=== PATIENT | female | born 2000 | race Caucasian/White ===

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

== ENCOUNTER 2020-01-25 00:06 | Outpatient (CLI) | payer MEDICAID, SELFPAY ==
[2020-01-25 12:41] LABS: Hemoglobin A1C 5.6 % (<5.7)
[2020-01-25 13:48] LABS: TSH 4.28 uIU/mL (0.52-4.13)
== END 2020-01-25 00:26 ==
PROVIDERS: PCP Pediatrics; Visit Provider Nurse Practitioner Pediatrics
DX: E03.1 Congenital hypothyroidism without goiter (principal)
CPT/HCPCS: 36415; 83036; 84443

== ENCOUNTER 2020-05-19 03:02 | Outpatient (CLI) | payer MEDICAID, SELFPAY ==
[2020-05-19 10:30] LABS: Hemoglobin A1C 5.7 % (<5.7)
[2020-05-19 11:00] LABS: TSH 2.98 uIU/mL (0.52-4.13)
== END 2020-05-19 03:22 ==
PROVIDERS: PCP Pediatrics; Visit Provider Nurse Practitioner Pediatrics
DX: E03.1 Congenital hypothyroidism without goiter (principal)
CPT/HCPCS: 36415; 83036; 84443

== ENCOUNTER 2020-05-27 10:22 | Emergency (ER) | payer MEDICAID, SELFPAY ==
[2020-05-27 10:26] VITALS: BP 143/88; PULSE 96; RESP 20; TEMP 36.9; O2SAT 100
--- NOTE | 2020-05-27 11:00 | DI.RAD_ITS ---
EXAM: XR ELBOW RT COMPLETE CLINICAL HISTORY: right elbow pain. TECHNIQUE: 2D digital imaging was performed. COMPARISON: No exams were available for comparison FINDINGS: BONES: No acute fracture is present. No bony destructive lesion is seen. JOINTS: The elbow is normally aligned. No joint effusion is seen. SOFT TISSUE: Normal. IMPRESSION: Unremarkable radiographs of the right elbow. DATA REPOSITORY: RADIATION DOSE DELIVERED:
--- NOTE | 2020-05-27 11:00 | ED.GENADUL_ITS ---
Discharge Plan Disposition Patient Disposition: HOME Condition: Good Discharge Details Clinical Impression: Concussion, Elbow pain, right Primary Care Provider: Devon Louie ED Provider: Britt Vail Home Meds and New Rx's Prescriptions: No Action tretinoin 0.025 % cream 1 applic TP QHS Qty: 20 RF: 1 levothyroxine 200 mcg tablet 200 mcg PO DAILY Qty: 60 RF: 0 fluoxetine 10 mg capsule 10 mg PO DAILY Qty: 60 RF: 1 levothyroxine 25 mcg Tablet 25 mcg PO DAILY RF: 0 Discharge Instructions Instructions: Concussion (ED) Additional Instructions: Take ibuprofen and Tylenol as needed for pain Wear your sling as needed to rest your elbow, I do not see evidence of fracture, repeat x-ray in 1 week if persistent pain Do not drive if you feel dizzy or have a headache, you may have concussion I recommend decreasing the amount of television and phone use and reading that this may help improve your symptoms, you may have concussion signs or symptoms for 7 to 14 days Return earlier should you have new or worsening complaints including vomiting, worsening hadache Stand Alone Forms: Work Release Medical Decision Making Suspect patient has concussion regarding mild headache and lightheadedness She is neurologically intact and my suspicion for intracranial pathology is low To diminish threshold to return to the of vomiting or worsening headache She is alert and oriented, nonfocal neurological exam and ambulatory steady gait No indication for head CT at this time X-ray of the right elbow does not show acute pathology per my interpretation, pending radiology review Discharged home stable condition with stable vital Sling applied for comfort, instructed to continue shoulder symptoms not become stressed Motrin Tylenol as needed for discomfort recommended Differential Diagnosis Differential Diagnosis: Concussion, subdural hematoma, fracture, strain Medical Records Medical records reviewed: Yes I reviewed the patient's medical records. HPI This 19-year-old female presents status post slip and fall. She hit her head when she fell. She not lose consciousness. The event occurred approximately half an hour prior to arrival. She complains of tenderness on the affected side of her head without dizziness, vomiting, or neck discomfort. She also complains of some right elbow pain. She denies strength or sensation changes. She was ambulatory after the event occurred. She was on her way to work. She describes the pain as an aching pain to the right side of her scalp. The elbow pain is exacerbated with movement and sharp. She otherwise healthy and not anticoagulated. She denies any chest pain, abdominal pain, shortness of breath, back pain. She denies any chance of . General Date/Time Provider Initiated Documentation: 05/27/20 10:35 . Related Data Home Medications Medication Instructions Recorded Confirmed levothyroxine 200 mcg tablet 200 mcg PO DAILY #60 tab-cap 01/22/19 05/27/20 tretinoin 0.025 % topical cream 1 applic TP QHS #20 gm 12/25/19 05/27/20 fluoxetine 10 mg capsule 10 mg PO DAILY #60 cap 03/10/20 05/27/20 levothyroxine 25 mcg PO DAILY 05/27/20 05/27/20 Previous Rx's Medication Instructions Recorded levothyroxine 200 mcg tablet 200 mcg PO DAILY #60 tab-cap 01/22/19 tretinoin 0.025 % topical cream 1 applic TP QHS #20 gm 12/25/19 fluoxetine 10 mg capsule 10 mg PO DAILY #60 cap 03/10/20 Allergies Allergy/AdvReac Type Severity Reaction Status Date / Time macadamia nut oil Allergy Verified 05/27/20 10:30 No Known Drug Allergies Allergy Verified 05/27/20 10:30 DAIRY Allergy Mild Diarrhea Uncoded 05/27/20 10:30 General Stated Complaint: HeadInjury COLEMAN: 3 Review of Systems Narrative: Review of systems negative x7 aside from where indicated in HPI [facility] Medical History (Updated 05/27/20 @ 11:10 by DEBBY Romo) 504 plan Chronic serous otitis media PE TUBES -2001 Congenital hypothyroidism Hearing aid worn amplifier at school Learning difficulty HAS IEP Respiratory syncytial virus bronchiolitis HOSP Surgical History Myringotomy w/ PE (pressure equalizing) tubes Family History Mother Dental decay loss of several teeth Sister BMI,pediatric >= 95% Brother Substance abuse THC Anxiety Social History (Updated 12/25/19 @ 13:59 by Adri Valdovinos LPN) Smoking/Tobacco Use Status: Never Second Hand Exposure: No Smoking risk assessment performed?: Yes Alcohol Intake: current Alcohol Intake frequency: holidays/special occasions only Drug use: Never Substance use type: does not use Household members: family Pets and animals: Yes Pets and animals: farm animals and other Details: GEESE Do you feel safe at home: Yes Do you feel safe in your relationship?: Yes Additional Social history: Works at [employer]. Exam Const General: cooperative, healthy appearing and comfortable Orientation: alert, awake and oriented x3 HENMT Head: normal to inspection, no palpable skull fracture, normocephalic and no abrasions Throat: uvula midline Eyes Pupils: PERRL EOM: EOM intact bilaterally Neck Neck: normal visual inspection and full ROM Other: No midline or paraspinal tenderness appreciated Chest Chest: normal inspection of the chest and normal palpation of entire chest wall Resp Effort & Inspection: normal respiratory effort Auscultation: clear to auscultation bilaterally Cardio Rate: regular rate GI Inspection: normal to inspection Rectal Exam - female: No tenderness Other: No CVA tenderness Back/Spine/Pelvis Other: No midline tenderness to lumbar or thoracic spine, no tenderness to hips bilaterally, Skin Other: Warm, dry, intact Neuro Other: GCS 15, alert and oriented x4, strength and sensation intact distally, ambulatory with steady gait Extrem Other: Tenderness to palpation to right medial elbow, no visible sign of trauma, range of motion intact, neurovascularly intact, no tenderness to palpation to wrist or shoulder bilaterally Course Vital Signs Vital signs: Vital Signs Temperature 36.9 C 05/27/20 10:26 Pulse 96 H 05/27/20 10:26 Respiratory Rate 20 05/27/20 10:26 Blood Pressure 143/88 H 05/27/20 10:26 Pulse Oximetry 100 05/27/20 10:26 Temperature 36.9 C 05/27/20 10:26 Temperature Source Skin 05/27/20 10:26 Pulse 96 H 05/27/20 10:26 Respiratory Rate 20 05/27/20 10:26 Respiratory Effort 05/27/20 10:34 Respiratory Depth Normal 05/27/20 10:34 Blood Pressure 143/88 H 05/27/20 10:26 Blood Pressure Position Sitting 05/27/20 10:26 Pulse Oximetry 100 05/27/20 10:26 Oxygen Delivery Method Room Air 05/27/20 10:26 Oxygen Flow Rate 0 05/27/20 10:26 Pain Level 6 05/27/20 10:26
== END 2020-05-27 11:50 | disposition home or self-care (01) ==
PROVIDERS: Emergency Provider Physician Assistant; PCP Pediatrics
DX: S06.0X0A Concussion without loss of consciousness, initial encounter (principal); M25.521 Pain in right elbow; W00.0XXA Fall on same level due to ice and snow, initial encounter
CPT/HCPCS: 99283; 73080

== ENCOUNTER 2020-08-10 15:01 | Emergency (ER) | payer MEDICAID, SELFPAY ==
[2020-08-10 15:30] VITALS: BP 125/70; PULSE 117; RESP 16; TEMP 37.1; O2SAT 97
--- NOTE | 2020-08-10 15:50 | ED.GENADUL_ITS ---
Discharge Plan Discharge Details Chief Complaint: Nausea/Vomit/Diar Primary Care Provider: Devon Louie ED Provider: Avery Mckeon Home Meds and New Rx's Prescriptions: No Action tretinoin 0.025 % cream 1 applic TP QHS Qty: 20 RF: 1 fluoxetine 20 mg capsule 20 mg PO DAILY Qty: 30 RF: 1 levothyroxine 200 mcg tablet 200 mcg PO DAILY Qty: 60 RF: 0 levothyroxine 25 mcg Tablet 25 mcg PO DAILY RF: 0 Medical Decision Making 20-year-old female with fairly abrupt onset of nausea, vomiting began after l unch and is associated with anxiety. She arrives here slightly tachycardic at triage, normalized to approximately 80-90 time of my exam, normal blood pressure no fever. Abdomen soft and nontender. She is quite anxious, may have a gastroenteritis, and does appear dehydrated. IV access established, patient given antiemetic, fluids, and is referred for laboratory testing with basic labs and urinalysis. White blood cell count is 9, hematocrit 34, platelets 394. Chemistries unremarkable. Serum hCG negative. Following fluids and antiemetic patient is improved. She will take liquids by mouth. Pulse corrected from 117-60. Lab Data Lab results reviewed: Yes I reviewed the patient's lab results. Labs: Laboratory Results - last 24 hr 08/10/20 08/10/20 08/10/20 16:40 16:44 16:44 WBC 9.71 RBC 4.72 Hgb 10.0 L Hct 34.0 L MCV 72.0 L MCH 21.2 L MCHC 29.4 L RDW 17.6 H Plt Count 394 MPV 9.4 Sodium 142 Potassium 3.8 Chloride 107 Carbon Dioxide 23.9 Anion Gap 11.1 H BUN 26 H Creatinine 0.9 Estimated GFR/1.73 m2 >= 60.00 Glucose 157 H Calcium 8.6 Serum HCG, Qual Negative HPI General Mode of arrival: ambulatory . Date/Time Provider Initiated Documentation: 08/10/20 15:02 . Limitations to Documentation: no limitations . Information obtained by: patient . History of Present Illness 20 year old F presents to the emergency department with the chief complaint of Anxiety started after lunch, Quality is described as dull and constant, and is localized to the abdomen. Patient started experiencing this minute(s) and it has been intermittent. No relieving factors improve symptom(s), No exacerbating factors reported . Patient notes loss of appetite and nausea/vomiting; denies fever/chills. Patient did receive the following treatments prior to arrival, none Related Data Home Medications Medication Instructions Recorded Confirmed tretinoin 0.025 % topical cream 1 applic TP QHS #20 gm 12/25/19 05/31/20 levothyroxine 25 mcg PO DAILY 05/27/20 08/02/20 levothyroxine 200 mcg tablet 200 mcg PO DAILY #60 tab-cap 06/25/20 08/02/20 fluoxetine 20 mg capsule 20 mg PO DAILY #30 cap 08/02/20 08/02/20 Previous Rx's Medication Instructions Recorded tretinoin 0.025 % topical cream 1 applic TP QHS #20 gm 12/25/19 levothyroxine 200 mcg tablet 200 mcg PO DAILY #60 tab-cap 06/25/20 fluoxetine 20 mg capsule 20 mg PO DAILY #30 cap 08/02/20 Allergies Allergy/AdvReac Type Severity Reaction Status Date / Time macadamia nut oil Allergy Verified 08/02/20 13:11 No Known Drug Allergies Allergy Verified 08/02/20 13:11 DAIRY Allergy Mild Diarrhea Uncoded 08/02/20 13:11 General Stated Complaint: Nausea/Vomit/Diar COLEMAN: 3 Review of Systems Narrative: 6 systems reviewed and otherwise neg [facility] Medical History 504 plan Chronic serous otitis media PE TUBES -2001 Congenital hypothyroidism Hearing aid worn amplifier at school Learning difficulty HAS IEP Respiratory syncytial virus bronchiolitis HOSP Surgical History Myringotomy w/ PE (pressure equalizing) tubes Family History Mother Dental decay loss of several teeth Sister BMI,pediatric >= 95% Brother Substance abuse THC Anxiety Social History Smoking/Tobacco Use Status: Never Second Hand Exposure: No Smoking risk assessment performed?: Yes Alcohol Intake: current Alcohol Intake frequency: holidays/special occasions only Drug use: Never Substance use type: does not use Household members: family Pets and animals: Yes Pets and animals: farm animals and other Details: GEESE Do you feel safe at home: Yes Do you feel safe in your relationship?: Yes Additional Social history: Works at [employer]. Exam Narrative Exam Narrative: GEN: awake, alert, oriented 3. Pleasant, well groomed, interactive. HEAD: Normocephalic, atraumatic ENT: Mucous membranes dry, oropharynx surrounded with vomitus, no intraoral obstruction, normal speech, External ear exam unremarkable EYES: PERRL, EOMI NECK: Full ROM, no BRENNEN, no menigismus CHEST/RESP: Nontender, clear to auscultation bilateral, no wheeze/rhonchi/rales CARDIOVASCULAR: RRR, no murmur, rub skyler. 2+ Rad pulse bilateral ABDOMEN: Soft, nontender, no mass. +Bowel sounds EXT: Full ROM, no edema, no rash Neuro: Grossly normal neurologic exam, conversant, interactive. Psych: Speech fluent, thoughts congruent, affect normal Course Vital Signs Vital signs: Vital Signs Temperature 37.1 C 08/10/20 15:30 Pulse 117 H 08/10/20 15:30 Respiratory Rate 16 08/10/20 15:30 Blood Pressure 125/70 08/10/20 15:30 Pulse Oximetry 97 08/10/20 15:30 Temperature 37.1 C 08/10/20 15:30 Temperature Source Temporal Artery Scan 08/10/20 15:30 Pulse 117 H 08/10/20 15:30 Respiratory Rate 16 08/10/20 15:30 Respiratory Effort 08/10/20 15:35 Blood Pressure 125/70 08/10/20 15:30 Blood Pressure Position Sitting 08/10/20 15:30 Pulse Oximetry 97 08/10/20 15:30 Oxygen Delivery Method Room Air 08/10/20 15:30 Oxygen Flow Rate 0 08/10/20 15:30 Pain Level 0 08/10/20 15:30
[2020-08-10 15:57] VITALS: BP 129/72; PULSE 60; RESP 24; O2SAT 100
[2020-08-10] MEDS: Normal Saline 1,000 ML 1000 ML IV ×2 (16:22→17:27)
[2020-08-10] MEDS: Ondansetron 4 MG/2 ML VIAL IVP (16:22)
[2020-08-10 16:55] LABS: MCH 21.2 pg (27.0-33.0); MCHC 29.4 % (32.0-36.0); MPV 9.4 fL (8.0-11.0); Platelet Count 394 10^3/uL (130-400); RBC 4.72 10^6/uL (3.93-5.22); RDW 17.6 % (11.7-14.6); RDW-SD 45.7 fL; WBC 9.71 10^3/uL (4.4-10.8)
[2020-08-10 17:06] LABS: Anion Gap 11.1 mmol/L (3-11); BUN 26 mg/dL (7-18); CO2 23.9 mmol/L (21.0-32.0); CREATININE 0.9 mg/dL (0.55-1.02); Calcium 8.6 mg/dL (8.5-10.1); Chloride 107 mmol/L (98-107); Glucose 157 mg/dL (74-106); Potassium 3.8 mmol/L (3.5-5.1); Sodium 142 mmol/L (136-145)
[2020-08-10 17:39] LABS: HCG Qual (Serum) Negative
--- NOTE | 2020-08-10 18:00 | NUR.NOTE ---
Nursing Note: Bina,mom,[phone]
[2020-08-10 18:35] VITALS: BP 112/69; PULSE 89; RESP 15; TEMP 37.1; O2SAT 99
[2020-08-10 20:21] LABS: Bilirubin Negative (Negative); Blood Large (Negative); Clarity Clear (Clear); Glucose Negative (Negative); Ketones Negative (Negative); Leukocyte Esterase Negative (Negative); Nitrite Negative (Negative); Specific Gravity 1.025 (1.005-1.025); Urobilinogen 0.2 EU/dL (Up TO 0.2)
[2020-08-10 20:27] LABS: Bacteria Negative HPF (Negative); C & S Indicated? No/Sq. Contamination; Casts Negative LPF (Negative); Crystals Few Amorphous HPF (Negative); Epithelial Cells Many HPF (Negative); Mucus Negative (Negative); WBC 0-2 HPF (0-5)
[2020-08-10] MEDS: Ondansetron O.D.T. 4 MG TABEF, 3 TABS/BTL 12 MG (20:33)
== END 2020-08-10 20:49 | disposition home or self-care (01) ==
PROVIDERS: Emergency Provider Emergency Medicine; PCP Pediatrics
DX: R11.2 Nausea with vomiting, unspecified (principal); F41.9 Anxiety disorder, unspecified; E86.0 Dehydration
CPT/HCPCS: 36415; 80048; 81025; 85027; 96361; 96365; 96366; 96375; 99284; 81003; 81015; 84703; J2405

== ENCOUNTER 2020-09-11 21:06 | Inpatient (IN) | payer MEDICAID, SELFPAY ==
[2020-09-11 21:10] VITALS: BP 152/96; PULSE 87; RESP 18; TEMP 37.4; O2SAT 98
--- NOTE | 2020-09-11 21:23 | W.ED.GENAD ---
Discharge Plan Disposition Patient Disposition: [facility] INPATIENT Condition: Stable Discharge Details Clinical Impression: Suicidal ideation, Major depression Admit Date/Time: 09/12/20 14:43 Admit Provider: Adelso Chan Attending Provider: Adelso Chan Primary Care Provider: Devon Louie ED Provider: Erin Vee Discharge Data Discharge Date/Time-TO BE ENTERED AT DEPARTURE: 09/12/20 15:51 Medical Decision Making <Bean Samuels DO - Last Filed: 09/11/20 23:06> 20-year-old female with past medical history of depression hypothyroidism presents today for evaluation of depression and suicidality. Patient states that for the last few years she has struggled with depression and suicidality however over the last few days she has had notable worsening of this, she states that she feels that she is in a dark tunnel and cannot get out and that the only solution is test. She states she would end her life by taking pills or cutting her wrists, she says that she has cut her wrist once in the distant past but she has not tried to overdose on pills before. She has not taken any extra pills, and denies any IV or illicit drug use currently. She denies any homicidality. She denies any auditory or visual hallucinations. She does have a counselor who did recommend that she come in. No other complaints at this time. No other modifying factors. Exam is unremarkable, no evidence of self-harm at this time. We will get the patient in blue scrubs, do a formal work-up to rule out any physiologic cause of her symptoms, consult mental health, monitor closely and reassess. The patient does want to be here voluntarily at this time. 11:06 PM Laboratory work-up is returned unremarkable, patient medically cleared. Mental health has come and assessed the patient and they agree on the need for inpatient admission, and the patient agrees with this as well. We will keep the patient here in the emergency department for the time being, and monitor closely. I did contact the patient's mother at the patient's request, Bina, and discussed the case with her. She agrees with the plan. <Erin Vee DO - Last Filed: 09/15/20 09:31> 0730 -- please see Dr. Samuels's note for initial presentation, exam and plan. Case endorsed to monitor patient today with potential plan for transfer to the floor for admission. Patient was held in the ED due to limited availability with other psych patients on the floor. 1400 -- Care huddle with team -- plan is for patient to go to the floor soon. 1430 -- Case discussed with hospitalist who accepts patient for admission to the floor. Care management noted that there may be availability at [facility]. [facility] is requesting hemoglobin A1c, lipid panel and EKG. Medical Records Medical records reviewed: Yes I reviewed the patient's medical records. Lab Data Lab results reviewed: Yes I reviewed the patient's lab results. Labs: Laboratory Tests Range/Units 09/11/20 09/11/20 09/11/20 00:05 21:25 21:25 WBC (4.4-10.8) 10^3/uL RBC (3.93-5.22) 10^6/uL Hgb (11.2-15.7) g/dL Hct (36.0-46.0) % MCV (80-95) fL MCH (27.0-33.0) pg MCHC (32.0-36.0) % RDW (11.7-14.6) % Plt Count (130-400) 10^3/uL MPV (8.0-11.0) fL Immature Gran % Neutrophils % Lymphocytes % Monocytes % Eosinophils % Basophils % Nucleated RBC % % Absolute Neutrophils (1.2-6.7) 10^3/uL Absolute Lymphocytes (1.2-3.4) 10^3/uL Absolute Monocytes (0.1-0.8) 10^3/uL Absolute Eosinophils (0.0-0.7) 10^3/uL Absolute Basophils (0.0-0.2) 10^3/uL RBC Morphology Hypochromasia Microcytosis Sodium (136-145) mmol/L 141 Potassium (3.5-5.1) mmol/L 4.1 Chloride (98-107) mmol/L 106 Carbon Dioxide (21.0-32.0) mmol/L 25.1 Anion Gap (3-11) mmol/L 9.9 BUN (7-18) mg/dL 22 H Creatinine (0.55-1.02) mg/dL 0.8 Estimated GFR/1.73 m2 (mL/min/1.73m2) >= 60.00 Glucose (74-106) mg/dL 99 Calcium (8.5-10.1) mg/dL 8.6 Total Bilirubin (0.2-1.0) mg/dL 0.2 AST (15-37) U/L 19 ALT (14-59) U/L 27 Alkaline Phosphatase (46-116) U/L 77 Total Protein (6.4-8.2) g/dL 7.8 Albumin (3.4-5.0) g/dL 3.7 Triglycerides (<150) mg/dL Total Cholesterol (<200) mg/dL LDL Cholesterol, Calc (<100) mg/dL HDL Cholesterol (40-60) mg/dL TSH (0.36-3.74) uIU/mL 2.87 Salicylates (<2.8) mg/dL 4.9 Urine Opiates Screen (Negative) Urine Methadone Screen (Negative) Acetaminophen (10-30) ug/mL < 2 Ur Barbiturates Screen (Negative) Ur Tricyclics Screen (Negative) Ur Amphetamines Screen (Negative) U Benzodiazepines Scrn (Negative) Urine Cocaine Screen (Negative) Ur THC Screen (Negative) Ethyl Alcohol (<3) mg/dL 3.2 COVID-19 Source Nasal/nares SARS-CoV-2 (PCR) (Negative) Negative Range/Units 09/11/20 09/11/20 09/11/20 21:25 21:25 21:35 WBC (4.4-10.8) 10^3/uL 5.99 RBC (3.93-5.22) 10^6/uL 4.81 Hgb (11.2-15.7) g/dL 10.3 L Hct (36.0-46.0) % 33.6 L MCV (80-95) fL 69.9 L MCH (27.0-33.0) pg 21.4 L MCHC (32.0-36.0) % 30.7 L RDW (11.7-14.6) % 17.7 H Plt Count (130-400) 10^3/uL 383 MPV (8.0-11.0) fL 8.9 Immature Gran % 0.2 Neutrophils % 49.6 Lymphocytes % 37.7 Monocytes % 8.0 Eosinophils % 3.8 Basophils % 0.7 Nucleated RBC % % 0 Absolute Neutrophils (1.2-6.7) 10^3/uL 2.97 Absolute Lymphocytes (1.2-3.4) 10^3/uL 2.26 Absolute Monocytes (0.1-0.8) 10^3/uL 0.48 Absolute Eosinophils (0.0-0.7) 10^3/uL 0.23 Absolute Basophils (0.0-0.2) 10^3/uL 0.04 RBC Morphology See below Hypochromasia 2+ Microcytosis 2+ Sodium (136-145) mmol/L Potassium (3.5-5.1) mmol/L Chloride (98-107) mmol/L Carbon Dioxide (21.0-32.0) mmol/L Anion Gap (3-11) mmol/L BUN (7-18) mg/dL Creatinine (0.55-1.02) mg/dL Estimated GFR/1.73 m2 (mL/min/1.73m2) Glucose (74-106) mg/dL Calcium (8.5-10.1) mg/dL Total Bilirubin (0.2-1.0) mg/dL AST (15-37) U/L ALT (14-59) U/L Alkaline Phosphatase (46-116) U/L Total Protein (6.4-8.2) g/dL Albumin (3.4-5.0) g/dL Triglycerides (<150) mg/dL 83 Total Cholesterol (<200) mg/dL 208 H LDL Cholesterol, Calc (<100) mg/dL 128 H HDL Cholesterol (40-60) mg/dL 64 TSH (0.36-3.74) uIU/mL Salicylates (<2.8) mg/dL Urine Opiates Screen (Negative) Negative Urine Methadone Screen (Negative) Negative Acetaminophen (10-30) ug/mL Ur Barbiturates Screen (Negative) Negative Ur Tricyclics Screen (Negative) Negative Ur Amphetamines Screen (Negative) Negative U Benzodiazepines Scrn (Negative) Negative Urine Cocaine Screen (Negative) Negative Ur THC Screen (Negative) Negative Ethyl Alcohol (<3) mg/dL COVID-19 Source SARS-CoV-2 (PCR) (Negative) ECG Data Attestation: I personally reviewed and interpreted this ECG (s) as follows: Interpretation: Rate of 77, sinus, no acute ST elevation or depression. DC 145. QTc 421 HPI <Bean R Arvind, DO - Last Filed: 09/11/20 23:06> General Date/Time Provider Initiated Documentation: 09/11/20 21:08. HPI Narrative: 20-year-old female with past medical history of depression hypothyroidism presents today for evaluation of depression and suicidality. Patient states that for the last few years she has struggled with depression and suicidality however over the last few days she has had notable worsening of this, she states that she feels that she is in a dark tunnel and cannot get out and that the only solution is test. She states she would end her life by taking pills or cutting her wrists, she says that she has cut her wrist once in the distant past but she has not tried to overdose on pills before. She has not taken any extra pills, and denies any IV or illicit drug use currently. She denies any homicidality. She denies any auditory or visual hallucinations. She does have a counselor who did recommend that she come in. No other complaints at this time. No other modifying factors. Related Data Home Medications Medication Instructions Recorded Confirmed fluoxetine 40 mg capsule 40 mg PO DAILY #30 cap 08/30/20 09/11/20 hydroxyzine pamoate 25 mg capsule 25 mg PO TID PRN #14 cap 08/30/20 09/11/20 levothyroxine 112 mcg capsule 224 mcg PO DAILY #60 cap 08/30/20 09/11/20 ondansetron 8 mg disintegrating 8 mg PO Q12H #7 tab 08/30/20 09/11/20 tablet Previous Rx's Medication Instructions Recorded fluoxetine 40 mg capsule 40 mg PO DAILY #30 cap 08/30/20 hydroxyzine pamoate 25 mg capsule 25 mg PO TID PRN #14 cap 08/30/20 levothyroxine 112 mcg capsule 224 mcg PO DAILY #60 cap 08/30/20 ondansetron 8 mg disintegrating 8 mg PO Q12H #7 tab 08/30/20 tablet Allergies Allergy/AdvReac Type Severity Reaction Status Date / Time macadamia nut oil Allergy Verified 09/11/20 23:08 No Known Drug Allergies Allergy Verified 09/11/20 23:08 DAIRY Allergy Mild Diarrhea Uncoded 09/11/20 23:08 General COLEMAN: 3 Review of Systems <DO Lori Villegas Last Filed: 09/11/20 23:06> All systems reviewed & are unremarkable except as noted in HPI and below PFSH <Bean Childs DO Arvind - Last Filed: 09/11/20 23:06> Medical History 504 plan Chronic serous otitis media PE TUBES -2001 Congenital hypothyroidism Hearing aid worn amplifier at school Learning difficulty HAS IEP Respiratory syncytial virus bronchiolitis HOSP Surgical History Myringotomy w/ PE (pressure equalizing) tubes Family History Mother Dental decay loss of several teeth Sister BMI,pediatric >= 95% Brother Substance abuse THC Anxiety Social History Smoking/Tobacco Use Status: Never Second Hand Exposure: No Smoking risk assessment performed?: Yes Alcohol Intake: current Alcohol Intake frequency: holidays/special occasions only Drug use: Occasionally Substance use type: other Details: States she uses edibles a couple x a month. States she does not have ready access to them. Household members: family Pets and animals: Yes Pets and animals: farm animals and other Details: GEESE Do you feel safe at home: Yes Do you feel safe in your relationship?: Yes Additional Social history: Works at [employer]. Exam <Bean Childs DO Arvind - Last Filed: 09/11/20 23:06> Narrative Exam Narrative: 1.Const: Well-nourished, Well-developed, appearing stated age 2.Eyes: PERRL, no conjunctival injection, and symmetrical lids. 3.ENT: Atraumatic external nose and ears. Moist MM. Neck: Symmetric, trachea midline, No thyromegaly. 4.CVS: +S1/S2, No murmurs or gallops. Peripheral pulses 2+ and equal in all extremities. Brisk capillary refill in all extremities. 5.RESP: Unlabored respiratory effort. Clear to auscultation bilaterally. No wheezes rales or rhonchi 6.GI: Soft, Nontender/Nondistended, No hepatosplenomegaly. No guarding or rebound. 7.MSK: Normocephalic/Atraumatic, Extremities w/o deformity or ttp No cyanosis or clubbing, Normal movement of all extremities 8.Skin: Warm, Dry. No rashes or lesions. No evidence of lacerations or self-inflicted wounds. 9.Neuro: weigher and charger II-XII grossly intact. Sensation grossly intact, no focal neurologic deficits. 10.Psych: (AAO) x3. Appropriate mood and affect Sign Out <Bean Samuels DO - Last Filed: 09/11/20 23:06> Sign Out Data: Sign Out Comment: Suicidal ideation with plan, here voluntarily, wants help. Patient stable for admission however due to current patient's up in the mental health srinivasan it might not be best for the patient to be admitted at this time until one of them is potentially discharge. Last updated by Bean Samuels DO at 09/12/20 07:42
[2020-09-11 21:41] LABS: Abs Immature Grans 0.01 10^3/uL (0.0-0.06); Absolute Basophil Count 0.04 10^3/uL (0.0-0.2); Absolute Eosinophil Count 0.23 10^3/uL (0.0-0.7); Absolute Lymphocyte Count 2.26 10^3/uL (1.2-3.4); Absolute Monocyte Count 0.48 10^3/uL (0.1-0.8); Absolute Neutrophil Count 2.97 10^3/uL (1.2-6.7); Basophils % 0.7; Eosinophils % 3.8; HCT 33.6 % (36.0-46.0); HGB 10.3 g/dL (11.2-15.7); Immature Grans % 0.2; Lymphocytes % 37.7; MCH 21.4 pg (27.0-33.0); MCHC 30.7 % (32.0-36.0); MCV 69.9 fL (80-95); MPV 8.9 fL (8.0-11.0); Neutrophils % 49.6; Nucleated RBC 0 %; Platelet Count 383 10^3/uL (130-400); RBC 4.81 10^6/uL (3.93-5.22); RDW 17.7 % (11.7-14.6); RDW-SD 43.6 fL; WBC 5.99 10^3/uL (4.4-10.8)
[2020-09-11 21:52] LABS: *AMPHETAMINES SCREEN URINE Negative (Negative); *BARBITURATES SCREEN URINE Negative (Negative); *BENZODIAZEPINES SCREEN URINE Negative (Negative); Cannabinoids THC Negative (Negative); Cocaine Screen,Urine Negative (Negative); METHADONE URINE SCREEN Negative (Negative); OPIATES URINE SCREEN Negative (Negative)
[2020-09-11 21:54] LABS: Tricyclic Antidepressants Negative (Negative)
[2020-09-11 22:02] LABS: Diff Comment Diff Reviewed; Hypochromasia 2+; Microcytosis 2+
[2020-09-11 22:04] LABS: ALT 27 U/L (14-59); AST 19 U/L (15-37); Albumin 3.7 g/dL (3.4-5.0); Alkaline Phosphatase 77 U/L (46-116); Anion Gap 9.9 mmol/L (3-11); BUN 22 mg/dL (7-18); Bilirubin, Total 0.2 mg/dL (0.2-1.0); CO2 25.1 mmol/L (21.0-32.0); CREATININE 0.8 mg/dL (0.55-1.02); Calcium 8.6 mg/dL (8.5-10.1); Chloride 106 mmol/L (98-107); ETHANOL BLOOD 3.2 mg/dL (<3); Glucose 99 mg/dL (74-106); Potassium 4.1 mmol/L (3.5-5.1); Sodium 141 mmol/L (136-145); TSH 2.87 uIU/mL (0.36-3.74); Total Protein 7.8 g/dL (6.4-8.2)
[2020-09-11 22:16] LABS: Salicylate 4.9 mg/dL (<2.8)
[2020-09-11 22:19] LABS: Acetaminophen < 2 ug/mL (10-30)
--- NOTE | 2020-09-11 22:39 | CMSP_ITS ---
- If Service Date Differs Date of service: 09/11/20 Time of Service: 22:39 Care Management Safety Plan Status: Voluntary Liliya is a 20 year old female with a history of depression who presented to the ED tonight with depression and thoughts of suicide. She reports that she would end her life by an overdose of medication or cutting her wrists. She has a therapist in the community who provides support. She is medically cleared, and is being assessed by [facility] to determine if she meets criteria to be held for inpatient psychiatric stabilization. VOLUNTARY FOR INPATIENT PSYCHIATRIC STABILIZATION. Patient is appropriate in all interactions since arriving at [facility]; Pt has demonstrated appropriate coping and communication skills, has articulated his or her needs and concerns and is fully engaged during staff interactions. Safety plan has been established with patient, and care team, to adhere to patient goals, identify restrictions based on behavioral status, address nutrition, and determine allowed personal belongings, tools for hygiene and personal care. Determine level of activity including ambulation, level of supervision, visitors, and determine privileges based on behaviors and level of engagement by pt. SAFETY PLAN: 1. Will remain on suicide precautions. In Paper Clothes 2. Will remain in room under direct supervision of one-on-one staff at all times provided by [employer]; KUSH, SALES REPRESENTATIVE ADDING MACHINES radio performer. 3. May have paper cups, plates, finger foods as well as a cardboard spoon with which to eat meals. 4. Follow [facility] Management of the Admitted Behavioral Health Patient policy. 5. Comfort bath system only. 6. Personal belongings at RN discretion. 7. Visitors-No visitors at this time 8. Activities: soft cart items, music tablet, TV; at RN discretion. 9. Bathroom privileges, escorted by [employer] while in ED. 10. Phone: may have own phone while in the ED, at discretion of staff. 11. Due to VOLUNTARY status, if patient wishes to leave [facility], staff will contact [facility] Crisis Screener ([phone]) and On-Call Combat Systems Operator ([phone]) as soon as possible. In the event of elopement, notify [facility] Police ([phone]). Patient is currently voluntarily at [facility] and seeking inpatient admission when a bed becomes available. [facility] Frontline Data Capture Clerk will continue seeking placement. Please contact the Physician Relations Specialist Combat Systems Operator ([phone]) and [facility] Data Capture Clerk ([phone]) for any needed changes in the Safety Plan. Safety plan has been provided to interdepartmental care team.
--- NOTE | 2020-09-11 23:22 | PDOC.MHCN_ITS ---
Date of service: 09/11/20 Time of Service: 22:22 Mental Health Crisis Note Presenting Issue How did you arrive at the ED and why did you come: Client arrived at the ED by her mother. Client reports that she was having SI and was afraid she was going to act on it, so she told her mother and was brought to the ED. Precipitating Factors Client reports SI with a plan to either od on prescription medication or slit her wrists. Disposition BEHAVIOR: Client is polite and receptive when speaking with this video games storywriter. EYE CONTACT: Client makes eye contact throughout the entire assessment. MOOD: Clients mood is depressed. AFFECT: Clients affect is flat. APPETITE: unknown SLEEP(trouble falling/staying asleep: Client reports trouble with sleep. Plan Client would like voluntary hospitalization. She fears that if she were to go home, she will act on her SI. She does not feel safe. This video games storywriter consulted with Dr. Samuels and client will be admitted to [facility] awaiting placement for a hospital bed. This video games storywriter called all hospitals and no availability tonight. All paperwork will be faxed. Signature Clinician's Name/Title: Annalise Schilling [facility] Emergency Clinician
[2020-09-12 00:16] LABS: Source Nasal/Nares
[2020-09-12] MEDS: diphenhydrAMINE 25 MG CAP PO (00:58)
[2020-09-12] MEDS: Melatonin 3 MG TAB 6 MG PO ×2 (01:16→20:35)
[2020-09-12] MEDS: Levothyroxine 112 MCG TAB 224 MCG PO (08:27)
[2020-09-12] MEDS: FLUoxetine 10 MG TAB PO (08:27)
[2020-09-12 10:27] VITALS: BP 120/71; PULSE 91; TEMP 37; O2SAT 98
[2020-09-12 10:49] LABS: COVID-19 PCR Negative (Negative)
--- NOTE | 2020-09-12 13:53 | PDOC.MHCN ---
Date of service: 09/12/20 Time of Service: 11:30 Mental Health Crisis Note Presenting Issue How did you arrive at the ED and why did you come: Client arrived to ER via private transport due to SI with intent and a plan. Precipitating Factors Client denied SI/HI at this time. However, client stated she does not feel safe to go home and would still like to seek treatment Disposition BEHAVIOR: Client was cooperative and cordial EYE CONTACT: Client maintained good eye contact during this assessment MOOD: Client presented with anxious but hopeful mood. AFFECT: Client presented with restricted affect APPETITE: Client reported she some times experiences decreased appetite SLEEP(trouble falling/staying asleep: Client reported difficulty falling asleep. Client stated that she is able to stay asleep. Plan Client is still agreeable to in-patient treatment. Client is currently on voluntary status and will remain at [facility] till she is placed. Client will need to be reassessed by [facility] if she decided to discharge before placement so a safety plan could be made. Signature Clinician's Name/Title: Buffy Kolb / Emergency Services Clinician
--- NOTE | 2020-09-12 13:56 | PDOC.CMSAFED ---
- If Service Date Differs Date of service: 09/12/20 Time of Service: 13:56 Care Management Safety Plan Status: Voluntary VOLUNTARY FOR INPATIENT PSYCHIATRIC STABILIZATION. Patient is appropriate in all interactions since arriving at [facility]; Pt has demonstrated appropriate coping and communication skills, has articulated his or her needs and concerns and is fully engaged during staff interactions. A huddle is held with Dr. Vee, ED provider, Lilian, nursing operations and maintenance supervisor, Fatmata, charge nurse, Falguni RN, and GIRMA Mcnally. Safety plan has been established with patient, and care team, to adhere to patient goals, identify restrictions based on behavioral status, address nutrition, and determine allowed personal belongings, tools for hygiene and personal care. Determine level of activity including ambulation, level of supervision, visitors, and determine privileges based on behaviors and level of engagement by pt. SAFETY PLAN: 1. Will remain on suicide precautions. In Paper Clothes 2. Will remain in room under direct supervision of one-on-one staff at all times provided by [employer], KUSH, SHOWCASE TRIMMER outboard motorboat operator. 3. May have paper cups, plates, finger foods as well as a cardboard spoon with which to eat meals. 4. Follow [facility] Management of the Admitted Behavioral Health Patient policy. 5. Personal care: Shower permitted with supervision and at RN discretion. 6. Personal belongings at RN discretion. 7. Visitors-No visitors at this time 8. Activities: soft cart items, music tablet, TV when available, and other activities at RN discretion. 9. Bathroom privileges, escorted by [employer] while in ED. If moved to Med/Surg, may use the bathroom available in room without supervision. 10. Phone: may use hospital phone for incoming and outgoing phone calls at discretion of staff. 11. Due to VOLUNTARY status, if patient wishes to leave [facility], staff will contact [facility] Crisis Screener ([phone]) and On-Call Precision Dancer ([phone]) as soon as possible. In the event of elopement, notify [place] [employer] Police ([phone]). Patient is currently voluntarily at [facility] and seeking inpatient admission when a bed becomes available. [facility] Frontline Consular Officer will continue seeking placement. Please contact the Privacy Compliance Manager Precision Dancer ([phone]) and [facility] Consular Officer ([phone]) for any needed changes in the Safety Plan. Safety plan has been provided to interdepartmental care team.
--- NOTE | 2020-09-12 14:49 | W.PM.HP.N ---
Date of service: 09/12/20 Time of Service: 14:49 Assessment and Plan Assessment and plan (1) Congenital hypothyroidism: Status: Acute (2) Depression: Status: Chronic (3) Suicidal ideations: Status: Acute History of Present Illness History of Present Illness Chief Complaint: Suicidal Ideation Narrative: This is a 20 yo female with a PMH of depression, . She presented to the ED for evaluation after having thoughts of suicide and feeling depressed. She presented voluntarily. States she thought about slitting wrists or taking pills. She endorsed taking a large amt of pills in the distant past. She denied taking any extra prescribed pills currently. She stated to the ED physician that her depression has worsened over the last several days and that she feels she is in a dark tunnel and can't get out. No hallucinations, confusion. Her counselor encouraged her to present for evaluation. Review of Systems All systems reviewed & are unremarkable except as noted in HPI and below PFSH Medical History (Updated 09/12/20 @ 14:55 by Adelso Chan MD) 504 plan Chronic serous otitis media PE TUBES -2001 Congenital hypothyroidism Hearing aid worn amplifier at school Learning difficulty HAS IEP Respiratory syncytial virus bronchiolitis HOSP Surgical History Myringotomy w/ PE (pressure equalizing) tubes Family History Mother Dental decay loss of several teeth Sister BMI,pediatric >= 95% Brother Substance abuse THC Anxiety Social History Smoking/Tobacco Use Status: Never Second Hand Exposure: No Smoking risk assessment performed?: Yes Alcohol Intake: current Alcohol Intake frequency: holidays/special occasions only Drug use: Occasionally Substance use type: other Details: States she uses edibles a couple x a month. States she does not have ready access to them. Household members: family Pets and animals: Yes Pets and animals: farm animals and other Details: GEESE Do you feel safe at home: Yes Do you feel safe in your relationship?: Yes Additional Social history: Works at [employer]. Meds Allergies and Home Medications Allergies Allergy/AdvReac Type Severity Reaction Status Date / Time macadamia nut oil Allergy Verified 05/23/21 23:08 No Known Drug Allergies Allergy Verified 09/11/20 23:08 DAIRY Allergy Mild Diarrhea Uncoded 09/11/20 23:08 Home Medications Medication Instructions Recorded Confirmed Type fluoxetine 40 mg capsule 40 mg PO DAILY #30 cap 08/30/20 09/11/20 Rx hydroxyzine pamoate 25 mg capsule 25 mg PO TID PRN #14 cap 08/30/20 09/11/20 Rx levothyroxine 112 mcg capsule 224 mcg PO DAILY #60 cap 08/30/20 09/11/20 Rx ondansetron 8 mg disintegrating 8 mg PO Q12H #7 tab 08/30/20 09/11/20 Rx tablet Results Labs Result diagrams: 09/11/20 21:25 09/11/20 21:25 Labs: Laboratory Results - last 24 hr 09/11/20 09/11/20 09/11/20 00:05 21:25 21:25 WBC RBC Hgb Hct MCV MCH MCHC RDW Plt Count MPV Immature Gran % Neutrophils % Lymphocytes % Monocytes % Eosinophils % Basophils % Nucleated RBC % Absolute Neutrophils Absolute Lymphocytes Absolute Monocytes Absolute Eosinophils Absolute Basophils RBC Morphology Hypochromasia Microcytosis Sodium 141 Potassium 4.1 Chloride 106 Carbon Dioxide 25.1 Anion Gap 9.9 BUN 22 H Creatinine 0.8 Estimated GFR/1.73 m2 >= 60.00 Glucose 99 Calcium 8.6 Total Bilirubin 0.2 AST 19 ALT 27 Alkaline Phosphatase 77 Total Protein 7.8 Albumin 3.7 TSH 2.87 Salicylates 4.9 Urine Opiates Screen Urine Methadone Screen Acetaminophen < 2 Ur Barbiturates Screen Ur Tricyclics Screen Ur Amphetamines Screen U Benzodiazepines Scrn Urine Cocaine Screen Ur THC Screen Ethyl Alcohol 3.2 COVID-19 Source Nasal/nares SARS-CoV-2 (PCR) Negative 09/11/20 09/11/20 21:25 21:25 WBC 5.99 RBC 4.81 Hgb 10.3 L Hct 33.6 L MCV 69.9 L MCH 21.4 L MCHC 30.7 L RDW 17.7 H Plt Count 383 MPV 8.9 Immature Gran % 0.2 Neutrophils % 49.6 Lymphocytes % 37.7 Monocytes % 8.0 Eosinophils % 3.8 Basophils % 0.7 Nucleated RBC % 0 Absolute Neutrophils 2.97 Absolute Lymphocytes 2.26 Absolute Monocytes 0.48 Absolute Eosinophils 0.23 Absolute Basophils 0.04 RBC Morphology See below Hypochromasia 2+ Microcytosis 2+ Sodium Potassium Chloride Carbon Dioxide Anion Gap BUN Creatinine Estimated GFR/1.73 m2 Glucose Calcium Total Bilirubin AST ALT Alkaline Phosphatase Total Protein Albumin TSH Salicylates Urine Opiates Screen Negative Urine Methadone Screen Negative Acetaminophen Ur Barbiturates Screen Negative Ur Tricyclics Screen Negative Ur Amphetamines Screen Negative U Benzodiazepines Scrn Negative Urine Cocaine Screen Negative Ur THC Screen Negative Ethyl Alcohol COVID-19 Source SARS-CoV-2 (PCR) Last Vital Signs Temp 37 C 09/12/20 10:27 Pulse 91 H 09/12/20 10:27 Resp 18 09/11/20 21:10 BP 120/71 09/12/20 10:27 Pulse Ox 98 09/12/20 10:27 COVID-19 Screening Have you, or household traveled for leisure in last 14 days?: No Had IN PERSON contact w/suspected or confirmed C-19 person: No
--- NOTE | 2020-09-12 15:00 | RT.EKG_ITS ---
APPROVED REPORT Exam: Resting ECG Reason for Exam: screening, depression Patient Location: E HR:77 bpm ECG Measurements Heart Rate 77 AXIS FL 145 P 37 QRSd 97 QRS -41 QT 372 T 17 QTc 421 Conclusion Sinus rhythm...normal P axis, V-rate 60- 99 Left axis deviation...QRS axis (-30,-90) I have reviewed and interpreted ECG and agree with software generated interpretation.
[2020-09-12 15:23] LABS: Calculated LDL 128 mg/dL (<100); Cholesterol 208 mg/dL (<200); HDL Cholesterol 64 mg/dL (40-60); Triglyceride 83 mg/dL (<150)
--- NOTE | 2020-09-12 15:23 | PDOC.ERCMPRO ---
- If Service Date Differs Date of service: 09/12/20 Time of Service: 15:23 Care Management Progress Note S/O: Liliya is sitting up in bed when CM comes to meet with her. She is pleasant and easily engages in conversation. She shares how on January 10, 2017, she learned that a close friend in school had by suicide. Liliya reports struggling with depression and intermittent suicidal thoughts since then. Liliya has never been psychiatrically hospitalized but she sees Cleo Hammonds for outpatient therapy. She describes her family as very supportive and cries when telling CM that she doesn't want to hurt her mom and dad. CM will continue to follow. A: Liliya is a 20 year old female admitted to [facility] on 09/11/2020 for suicidal ideation. P: [facility]. [facility] is considering Liliya for admission but has not yet made a bed offer. Liliya will remain at [facility] until a voluntary placement can be secured for her. CM will continue to follow.
[2020-09-12 15:45] LABS: Hemoglobin A1C 5.6 % (<5.7)
[2020-09-12 15:54] VITALS: BP 145/84; PULSE 82; RESP 18; TEMP 36.8; O2SAT 99
[2020-09-12 15:55] VITALS: BP 145/84; PULSE 82; RESP 18; TEMP 36.8; O2SAT 99
--- NOTE | 2020-09-12 16:57 | DSE_ITS ---
Date of service: 09/12/20 Time of Service: 16:57 DS: Diagnosis Discharge Diagnosis (1) Congenital hypothyroidism: Status: Acute (2) Depression: Status: Chronic (3) Suicidal ideations: Status: Acute Discharge Plan Disposition Patient Disposition: [facility] Condition: Stable Discharge Details Reason For Visit: suicidal ideation Admit Date/Time: 09/12/20 14:43 Admit Provider: Adelso Chan Attending Provider: Adelso Chan Primary Care Provider: Devon Louie Hospital Course Hospital Course: ?This is a 20 yo female with a PMH of depression, .? She presented to the ED for evaluation after having thoughts of suicide and feeling depressed.? She presented voluntarily.? States she thought about slitting wrists or taking pills. She endorsed taking a large amt of pills in the distant past.? She denied taking any extra prescribed pills currently. She stated to the ED physician that her depression has worsened over the last several days and that she feels she is in a dark tunnel and can't get out. No hallucinations, confusion.? Her counselor encouraged her to present for evaluation. ? Very soon after transfer to transitional unit she was accepted [place] [facility] facility. Home Meds and New Rx's Prescriptions: Continued hydroxyzine pamoate [Vistaril] 25 mg capsule 25 mg PO TID PRN (Reason: panic attack(s)) Qty: 14 RF: 0 fluoxetine 40 mg capsule 40 mg PO DAILY Qty: 30 RF: 1 ondansetron 8 mg tablet,disintegrating 8 mg PO Q12H Qty: 7 RF: 0 levothyroxine 112 mcg capsule 224 mcg PO DAILY Qty: 60 RF: 0 Discharge Instructions Activity:: Activity as Tolerated Equipment/Supplies:: No Equipment Needed Diet:: As Tolerated DS: Summary Time Spent with Patient providing and/or coordinating discharge services: Less than 30 minutes Status at Discharge Functional status at discharge: independent ambulation Overall status at discharge: patient is not back to baseline Mental Status: mental status grossly normal Speech and Movement: speech and movement normal Mood: congruent mood Affect: blunted Exam Const General: cooperative and no acute distress Orientation: alert and oriented x3 Resp Effort & Inspection: normal respiratory effort Auscultation: clear to auscultation bilaterally Cardio Rate: regular rate Rhythm: regular rhythm Heart Sounds: S1 normal and S2 normal GI Palpation: soft and nontender Extrem General: no pedal edema and no calf tenderness Psych Mental Status: mental status grossly normal Speech and Movement: speech and movement normal Mood: congruent mood Affect: blunted DS: Data Vitals/I&O Vitals and I&O: Vital Signs Temperature 36.8 C 09/12/20 15:54 Temperature Source Temporal Artery Scan 09/12/20 15:54 Pulse 82 09/12/20 15:54 Pulse Rhythm Regular 09/12/20 16:43 Respiratory Rate 18 09/12/20 15:54 Respiratory Effort Non-Labored 09/12/20 16:43 Respiratory Depth Normal 09/12/20 16:43 Respiratory Pattern Normal 09/12/20 16:43 Blood Pressure 145/84 H 09/12/20 15:54 Blood Pressure Position Sitting 09/11/20 21:10 Pulse Oximetry 99 09/12/20 15:54 Oxygen Delivery Method Room Air 09/12/20 15:54 Oxygen Flow Rate 0 09/12/20 15:54 Pain Level 0 09/12/20 15:54 Comment 09/11/20 21:10 Intake & Output 09/11/20 09/12/20 09/12/20 23:59 11:59 23:59 Weight 99.79 kg Other: Urine Color Yellow Voiding Methods Toilet Data Completed and Pending Labs on day of discharge: Labs from last 24 hours 09/11/20 09/11/20 09/11/20 21:35 21:35 21:25 WBC RBC Hgb Hct MCV MCH MCHC RDW Plt Count MPV Immature Gran % Neutrophils % Lymphocytes % Monocytes % Eosinophils % Basophils % Nucleated RBC % Absolute Neutrophils Absolute Lymphocytes Absolute Monocytes Absolute Eosinophils Absolute Basophils RBC Morphology Hypochromasia Microcytosis Sodium Potassium Chloride Carbon Dioxide Anion Gap BUN Creatinine Estimated GFR/1.73 m2 Glucose Hemoglobin A1c 5.6 Calcium Total Bilirubin AST ALT Alkaline Phosphatase Total Protein Albumin Triglycerides 83 Total Cholesterol 208 H LDL Cholesterol, Calc 128 H HDL Cholesterol 64 TSH Salicylates Urine Opiates Screen Negative Urine Methadone Screen Negative Acetaminophen Ur Barbiturates Screen Negative Ur Tricyclics Screen Negative Ur Amphetamines Screen Negative U Benzodiazepines Scrn Negative Urine Cocaine Screen Negative Ur THC Screen Negative Ethyl Alcohol COVID-19 Source SARS-CoV-2 (PCR) 09/11/20 09/11/20 09/11/20 21:25 21:25 21:25 WBC 5.99 RBC 4.81 Hgb 10.3 L Hct 33.6 L MCV 69.9 L MCH 21.4 L MCHC 30.7 L RDW 17.7 H Plt Count 383 MPV 8.9 Immature Gran % 0.2 Neutrophils % 49.6 Lymphocytes % 37.7 Monocytes % 8.0 Eosinophils % 3.8 Basophils % 0.7 Nucleated RBC % 0 Absolute Neutrophils 2.97 Absolute Lymphocytes 2.26 Absolute Monocytes 0.48 Absolute Eosinophils 0.23 Absolute Basophils 0.04 RBC Morphology See below Hypochromasia 2+ Microcytosis 2+ Sodium 141 Potassium 4.1 Chloride 106 Carbon Dioxide 25.1 Anion Gap 9.9 BUN 22 H Creatinine 0.8 Estimated GFR/1.73 m2 >= 60.00 Glucose 99 Hemoglobin A1c Calcium 8.6 Total Bilirubin 0.2 AST 19 ALT 27 Alkaline Phosphatase 77 Total Protein 7.8 Albumin 3.7 Triglycerides Total Cholesterol LDL Cholesterol, Calc HDL Cholesterol TSH 2.87 Salicylates 4.9 Urine Opiates Screen Urine Methadone Screen Acetaminophen < 2 Ur Barbiturates Screen Ur Tricyclics Screen Ur Amphetamines Screen U Benzodiazepines Scrn Urine Cocaine Screen Ur THC Screen Ethyl Alcohol 3.2 COVID-19 Source SARS-CoV-2 (PCR) 09/11/20 00:05 WBC RBC Hgb Hct MCV MCH MCHC RDW Plt Count MPV Immature Gran % Neutrophils % Lymphocytes % Monocytes % Eosinophils % Basophils % Nucleated RBC % Absolute Neutrophils Absolute Lymphocytes Absolute Monocytes Absolute Eosinophils Absolute Basophils RBC Morphology Hypochromasia Microcytosis Sodium Potassium Chloride Carbon Dioxide Anion Gap BUN Creatinine Estimated GFR/1.73 m2 Glucose Hemoglobin A1c Calcium Total Bilirubin AST ALT Alkaline Phosphatase Total Protein Albumin Triglycerides Total Cholesterol LDL Cholesterol, Calc HDL Cholesterol TSH Salicylates Urine Opiates Screen Urine Methadone Screen Acetaminophen Ur Barbiturates Screen Ur Tricyclics Screen Ur Amphetamines Screen U Benzodiazepines Scrn Urine Cocaine Screen Ur THC Screen Ethyl Alcohol COVID-19 Source Nasal/nares SARS-CoV-2 (PCR) Negative PFSH Medical History 504 plan Chronic serous otitis media PE TUBES -2001 Congenital hypothyroidism Hearing aid worn amplifier at school Learning difficulty HAS IEP Respiratory syncytial virus bronchiolitis HOSP Surgical History Myringotomy w/ PE (pressure equalizing) tubes Family History Mother Dental decay loss of several teeth Sister BMI,pediatric >= 95% Brother Substance abuse THC Anxiety Social History Smoking/Tobacco Use Status: Never Second Hand Exposure: No Smoking risk assessment performed?: Yes Alcohol Intake: current Alcohol Intake frequency: holidays/special occasions only Drug use: Occasionally Substance use type: other Details: States she uses edibles a couple x a month. States she does not have ready access to them. Household members: family Pets and animals: Yes Pets and animals: farm animals and other Details: GEESE Do you feel safe at home: Yes Do you feel safe in your relationship?: Yes Additional Social history: Works at [employer]
--- NOTE | 2020-09-12 17:09 | NUR.NOTE ---
nurse to nurse is complete for transfer. Nursing Note:
--- NOTE | 2020-09-12 18:11 | CMDISCH_ITS ---
- If Service Date Differs Date of service: 09/12/20 Time of Service: 18:11 LACE Index Scoring Tool - Questions: Length of Stay (in days): 1 Acuity (Admit via E.D.?): Yes E.D. Visits: 4 - Answers: Total Score: 8 Risk of Readmission: Low Risk Care Management Discharge Reason for Hospitalization: Suicidal Ideation Discharge Plan: Liliya will transfer to [facility] for psychiatric stabilization, she will transport via [facility] coordinated by this insurance writer. Patient/Family Education Needs: Review of MH placement process, secure transport, patient rights given voluntary status. Services Needed at Discharge: Psychiatric Facility ([facility]), Transportation ([facility] [place] transport; [facility] )
--- NOTE | 2020-09-12 18:11 | PDOC.CMDIS ---
- If Service Date Differs Date of service: 09/12/20 Time of Service: 18:11 LACE Index Scoring Tool - Questions: Length of Stay (in days): 1 Acuity (Admit via E.D.?): Yes E.D. Visits: 4 - Answers: Total Score: 8 Risk of Readmission: Low Risk Care Management Discharge Reason for Hospitalization: Suicidal Ideation Discharge Plan: Liliya will transfer to [facility] for psychiatric stabilization, she will transport via [facility] coordinated by this assembly instructions writer. Patient/Family Education Needs: Review of MH placement process, secure transport, patient rights given voluntary status. Services Needed at Discharge: Psychiatric Facility ([facility]), Transportation ([facility] transport; [facility] )
[2020-09-12] MEDS: Magnesium Oxide 400 MG TAB PO (21:04)
== END 2020-09-12 23:10 | disposition short-term general hospital (02) | DRG 881 ==
LOC: ER 09-12 15:30 → MS 09-12 15:54
PROVIDERS: Student in an Organized Health Care Education/Training Program; Admitting Provider Family Medicine; Emergency Provider Physician Assistant; PCP Pediatrics; Visit Provider Family Medicine
DX: F32.9 Major depressive disorder, single episode, unspecified (principal); R45.851 Suicidal ideations; E03.1 Congenital hypothyroidism without goiter; Z91.5 Personal history of self-harm; Z20.822 Contact with and (suspected) exposure to COVID-19; F81.89 Other developmental disorders of scholastic skills; H65.23 Chronic serous otitis media, bilateral
CPT/HCPCS: 36415; 80053; 80061; 80307; 81025; 87635; 93005; 99285; 80320; 80329; 83036; 84443; 85025; 93010; 99235; 99284

== ENCOUNTER 2020-12-17 21:42 | Observation (INO) | payer MEDICAID, SELFPAY ==
[2020-12-17 21:51] VITALS: BP 140/80; PULSE 100; RESP 20; TEMP 37.2; O2SAT 100
[2020-12-17 21:59] LABS: Bilirubin Negative (Negative); Blood Negative (Negative); Clarity Clear (Clear); Glucose Negative (Negative); Ketones Negative (Negative); Leukocyte Esterase Negative (Negative); Nitrite Negative (Negative); Urobilinogen 0.2 EU/dL (Up TO 0.2)
--- NOTE | 2020-12-17 22:33 | ED.GENADUL_ITS ---
Discharge Plan Disposition Patient Disposition: [facility] Condition: Stable Discharge Details Clinical Impression: Suicidal ideations, Depression Admit Date/Time: 12/18/20 00:29 Admit Provider: Scott Emmanuel Attending Provider: Scott Emmanuel Primary Care Provider: Devon Louie ED Provider: Yazan Clark Discharge Data Discharge Date/Time-TO BE ENTERED AT DEPARTURE: 12/18/20 01:25 Medical Decision Making <DEBBY Daugherty - Last Filed: 12/18/20 16:55> This is a 20-year-old female presenting to the ER with her sister for evaluation of ongoing suicidal ideation requesting voluntary hospitalization. Denies recent illness or injuries. No additional questions or concerns at this time. She reports having increased stress causing her symptoms. Denies alcohol use, drug use, or smoking. She has not done anything today to act on her thoughts. Obtain medical screening laboratory values, request a mental health evaluation, CPSO, and safety plan. Laboratory values did not reveal any obvious emergent process. Mild anemia, patient is asymptomatic. Patient has been calm and cooperative. Awaiting mental health evaluation Medical Records Medical records reviewed: Yes I reviewed the patient's medical records. Lab Data Lab results reviewed: Yes I reviewed the patient's lab results. Labs: Laboratory Tests Range/Units 12/17/20 12/17/20 12/17/20 21:50 21:50 22:26 WBC (4.4-10.8) 10^3/uL RBC (3.93-5.22) 10^6/uL Hgb (11.2-15.7) g/dL Hct (36.0-46.0) % MCV (80-95) fL MCH (27.0-33.0) pg MCHC (32.0-36.0) % RDW (11.7-14.6) % Plt Count (130-400) 10^3/uL MPV (8.0-11.0) fL Immature Gran % Neutrophils % Lymphocytes % Monocytes % Eosinophils % Basophils % Nucleated RBC % % Absolute Neutrophils (1.2-6.7) 10^3/uL Absolute Lymphocytes (1.2-3.4) 10^3/uL Absolute Monocytes (0.1-0.8) 10^3/uL Absolute Eosinophils (0.0-0.7) 10^3/uL Absolute Basophils (0.0-0.2) 10^3/uL RBC Morphology Microcytosis Sodium (136-145) mmol/L 140 Potassium (3.5-5.1) mmol/L 3.9 Chloride (98-107) mmol/L 106 Carbon Dioxide (21.0-32.0) mmol/L 25.6 Anion Gap (3-11) mmol/L 8.4 BUN (7-18) mg/dL 16 Creatinine (0.55-1.02) mg/dL 0.8 Estimated GFR/1.73 m2 (mL/min/1.73m2) >= 60.00 Glucose (74-106) mg/dL 104 Calcium (8.5-10.1) mg/dL 8.9 Total Bilirubin (0.2-1.0) mg/dL 0.1 L AST (15-37) U/L 22 ALT (14-59) U/L 46 Alkaline Phosphatase (46-116) U/L 82 Total Protein (6.4-8.2) g/dL 7.4 Albumin (3.4-5.0) g/dL 3.5 TSH (0.36-3.74) uIU/mL 0.96 Urine Color (Yellow) Yellow Urine Clarity (Clear) Clear Urine pH (5-8) 7.0 Ur Specific [place] (1.005-1.025) 1.020 Urine Protein (Negative) mg/dL Negative Urine Ketones (Negative) mg/dL Negative Urine Blood (Negative) Negative Urine Nitrite (Negative) Negative Urine Bilirubin (Negative) Negative Urine Urobilinogen (Up TO 0.2) EU/dL 0.2 Ur Leukocyte Esterase (Negative) Negative Urine Glucose (Negative) mg/dL Negative Salicylates (<2.8) mg/dL Urine Opiates Screen (Negative) Negative Urine Methadone Screen (Negative) Negative Acetaminophen (10-30) ug/mL Ur Barbiturates Screen (Negative) Negative Ur Tricyclics Screen (Negative) Negative Ur Amphetamines Screen (Negative) Negative U Benzodiazepines Scrn (Negative) Negative Urine Cocaine Screen (Negative) Negative Ur THC Screen (Negative) Negative Ethyl Alcohol (<3) mg/dL < 3.0 COVID-19 Source Range/Units 12/17/20 12/17/20 12/17/20 22:26 22:26 22:35 WBC (4.4-10.8) 10^3/uL 8.20 RBC (3.93-5.22) 10^6/uL 4.74 Hgb (11.2-15.7) g/dL 9.9 L Hct (36.0-46.0) % 33.2 L MCV (80-95) fL 70.0 L MCH (27.0-33.0) pg 20.9 L MCHC (32.0-36.0) % 29.8 L RDW (11.7-14.6) % 17.9 H Plt Count (130-400) 10^3/uL 361 MPV (8.0-11.0) fL 9.6 Immature Gran % 0.2 Neutrophils % 57.1 Lymphocytes % 32.6 Monocytes % 6.7 Eosinophils % 2.9 Basophils % 0.5 Nucleated RBC % % 0 Absolute Neutrophils (1.2-6.7) 10^3/uL 4.68 Absolute Lymphocytes (1.2-3.4) 10^3/uL 2.67 Absolute Monocytes (0.1-0.8) 10^3/uL 0.55 Absolute Eosinophils (0.0-0.7) 10^3/uL 0.24 Absolute Basophils (0.0-0.2) 10^3/uL 0.04 RBC Morphology See Below Microcytosis 2+ Sodium (136-145) mmol/L Potassium (3.5-5.1) mmol/L Chloride (98-107) mmol/L Carbon Dioxide (21.0-32.0) mmol/L Anion Gap (3-11) mmol/L BUN (7-18) mg/dL Creatinine (0.55-1.02) mg/dL Estimated GFR/1.73 m2 (mL/min/1.73m2) Glucose (74-106) mg/dL Calcium (8.5-10.1) mg/dL Total Bilirubin (0.2-1.0) mg/dL AST (15-37) U/L ALT (14-59) U/L Alkaline Phosphatase (46-116) U/L Total Protein (6.4-8.2) g/dL Albumin (3.4-5.0) g/dL TSH (0.36-3.74) uIU/mL Urine Color (Yellow) Urine Clarity (Clear) Urine pH (5-8) Ur Specific [place] (1.005-1.025) Urine Protein (Negative) mg/dL Urine Ketones (Negative) mg/dL Urine Blood (Negative) Urine Nitrite (Negative) Urine Bilirubin (Negative) Urine Urobilinogen (Up TO 0.2) EU/dL Ur Leukocyte Esterase (Negative) Urine Glucose (Negative) mg/dL Salicylates (<2.8) mg/dL < 2.8 Urine Opiates Screen (Negative) Urine Methadone Screen (Negative) Acetaminophen (10-30) ug/mL < 2 Ur Barbiturates Screen (Negative) Ur Tricyclics Screen (Negative) Ur Amphetamines Screen (Negative) U Benzodiazepines Scrn (Negative) Urine Cocaine Screen (Negative) Ur THC Screen (Negative) Ethyl Alcohol (<3) mg/dL COVID-19 Source Nasal/Nares <Yazan Clark MD - Last Filed: 12/18/20 00:08> Patient signed out to me pending mental health evaluation. She is medically cleared and has negative Covid. After evaluation by mental health patient has agreed to voluntary psych admission. Call placed to hospitalist to place in transition unit upstairs while waiting for psychiatric bed somewhere in the state. Lab Data Lab results reviewed: Yes I reviewed the patient's lab results. HPI <DEBBY Daugherty - Last Filed: 12/18/20 16:55> General Mode of arrival: ambulatory . Date/Time Provider Initiated Documentation: 12/17/20 21:42 . Limitations to Documentation: no limitations . Information obtained by: patient and family . HPI Narrative: This is a 20-year-old female presenting with her sister, past medical history of bulimia, depression, anxiety, hypothyroidism, presenting to the ER for evaluation of ongoing anxiety, depression and now with suicidal ideation. She does not have a specific plan. Patient is a rather vague historian but tells me that she just has a lot of things building up and has had increased stress over the past week or so. She denies acting on any of her thoughts. Denies recent illness or trauma. She denies fever, headache, chest pain, shortness of breath abdominal pain, nausea vomiting, change in bowel or bladder habits. She denies alcohol use, smoking, drug use. Patient states that she is taking all of her medications as directed. She does have a psychiatrist locally but wishes that she had additional resources like a therapist or counselor. She was hospitalized at the end of August this year which was very helpful, she is hoping for hospitalization again today. Related Data Home Medications Medication Instructions Recorded Confirmed hydroxyzine pamoate 25 mg capsule 25 mg PO TID PRN #14 cap 08/30/20 12/17/20 levothyroxine 112 mcg capsule 224 mcg PO DAILY #60 cap 08/30/20 12/17/20 ondansetron 8 mg disintegrating 8 mg PO Q12H #7 tab 08/30/20 12/17/20 tablet duloxetine 30 mg capsule,delayed 30 mg PO DAILY #30 cap 11/21/20 12/17/20 release prazosin 1 mg capsule 1 mg PO QHS #30 cap 11/21/20 12/17/20 Previous Rx's Medication Instructions Recorded hydroxyzine pamoate 25 mg capsule 25 mg PO TID PRN #14 cap 08/30/20 levothyroxine 112 mcg capsule 224 mcg PO DAILY #60 cap 08/30/20 ondansetron 8 mg disintegrating 8 mg PO Q12H #7 tab 08/30/20 tablet duloxetine 30 mg capsule,delayed 30 mg PO DAILY #30 cap 11/21/20 release prazosin 1 mg capsule 1 mg PO QHS #30 cap 11/21/20 Allergies Allergy/AdvReac Type Severity Reaction Status Date / Time macadamia nut oil Allergy Verified 12/17/20 22:04 No Known Drug Allergies Allergy Verified 12/17/20 22:04 DAIRY Allergy Mild Diarrhea Uncoded 12/17/20 22:04 General Stated Complaint: PsychEval COLEMAN: 2 Review of Systems <DEBBY Daugherty - Last Filed: 12/18/20 16:55> Constitutional Constitutional: Denies fatigue, Denies fever(s) and Denies headache(s) ENT Ears, Nose, Mouth, and Throat: Denies headache(s) and Denies neck pain Cardiovascular Cardiovascular: Denies chest pain and Denies dyspnea Respiratory Respiratory: Denies cough and Denies dyspnea Gastrointestinal Gastrointestinal: Denies abdominal pain, Denies nausea and Denies vomiting Genitourinary Genitourinary: Denies dysuria Musculoskeletal Musculoskeletal: Denies back pain and Denies neck pain Integumentary/Breasts Skin/Breast: Denies rash Neurologic Neurologic: Denies headache(s) Psychiatric Psychiatric: Reports anxiety, Reports depression, Denies homicidal ideation and Reports suicidal ideation Endocrine Endocrine: Denies fatigue PFSH <DEBBY Daugherty - Last Filed: 12/18/20 16:55> Medical History (Updated 12/18/20 @ 13:59 by Emani Barnes NP) 504 plan Chronic serous otitis media PE TUBES -2001 Congenital hypothyroidism Hearing aid worn amplifier at school Learning difficulty HAS IEP Respiratory syncytial virus bronchiolitis HOSP Surgical History Myringotomy w/ PE (pressure equalizing) tubes Family History Mother Dental decay loss of several teeth Sister BMI,pediatric >= 95% Brother Substance abuse THC Anxiety Social History Smoking/Tobacco Use Status: Never Second Hand Exposure: No Smoking risk assessment performed?: Yes Alcohol Intake: current Alcohol Intake frequency: holidays/special occasions only Drug use: Occasionally Substance use type: other Details: States she uses edibles a couple x a month. States she does not have ready access to them. Household members: family Pets and animals: Yes Pets and animals: farm animals and other Details: GEESE Do you feel safe at home: Yes Do you feel safe in your relationship?: Yes Additional Social history: Works at [employer]. Exam <DEBBY Daugherty - Last Filed: 12/18/20 16:55> Const General: cooperative, healthy appearing and anxious (Tearful) Orientation: alert, awake and oriented x3 HENMT Head: normal to inspection, normocephalic and atraumatic Face and sinus: normal facial exam Mouth: moist mucous membranes Eyes General: appearance normal, both eyes and all related structures Alignment and Position: alignment normal Periorbital: periorbital findings normal Eyelids: eyelids normal Conjunctivae: conjunctivae normal Sclera: sclerae normal Cornea: corneas normal Pupils: PERRL EOM: EOM intact bilaterally Direct ophthalmoscopy: normal light reflex Neck Neck: normal visual inspection, full ROM, trachea midline and supple Resp Effort & Inspection: normal respiratory effort and able to speak in complete sentences Auscultation: clear to auscultation bilaterally Cardio Rate: regular rate Rhythm: regular rhythm GI Palpation: soft and nontender Back/Spine/Pelvis Back: No back tenderness Skin General skin exam: no rashes or lesions noted Neuro General: patient alert, patient awake, patient oriented x3, moves all extremities and no focal motor deficits Cognition: normal cognition Speech: speech normal Gait: normal gait Motor: muscle tone normal throughout Sensory Exam: no sensory deficits noted Extrem General: normal to inspection, full ROM and capillary refill normal Psych Appearance: grossly normal Mental Status: mental status grossly normal Speech and Movement: speech and movement normal Mood: anxious mood and dysthymic mood Affect: sad Attitude: cooperative Thought Process: normal Thought Content: suicidality Insight: fair Judgment: fair Course <DEBBY Daugherty - Last Filed: 12/18/20 16:55> Vital Signs Vital signs: Vital Signs Temperature 37.2 C 12/17/20 21:51 Pulse 100 H 12/17/20 21:51 Respiratory Rate 20 12/17/20 21:51 Blood Pressure 140/80 12/17/20 21:51 Pulse Oximetry 100 12/17/20 21:51 Temperature 37.2 C 12/17/20 21:51 Temperature Source Temporal Artery Scan 12/17/20 21:51 Pulse 100 H 12/17/20 21:51 Respiratory Rate 20 12/17/20 21:51 Respiratory Effort 12/17/20 22:28 Blood Pressure 140/80 12/17/20 21:51 Blood Pressure Position Sitting 12/17/20 21:51 Pulse Oximetry 100 12/17/20 21:51 Oxygen Delivery Method Room Air 12/17/20 21:51 Oxygen Flow Rate 0 12/17/20 21:51 Lab/Test Results Lab/Test Results: Laboratory Tests Range/Units 12/17/20 21:50 Urine Color (Yellow) Yellow Urine Clarity (Clear) Clear Urine pH (5-8) 7.0 Ur Specific [place] (1.005-1.025) 1.020 Urine Protein (Negative) mg/dL Negative Urine Ketones (Negative) mg/dL Negative Urine Blood (Negative) Negative Urine Nitrite (Negative) Negative Urine Bilirubin (Negative) Negative Urine Urobilinogen (Up TO 0.2) EU/dL 0.2 Ur Leukocyte Esterase (Negative) Negative Urine Glucose (Negative) mg/dL Negative POC Urine Test Start: 12/17/20 22:00 Freq: Status: Complete Protocol: Document 12/17/20 22:01 CP (Rec: 12/17/20 22:01 [id number]) Test(Urine)-POC POC- Test(urine) Negative POC- Test(urine) Negative Sign Out <DEBBY Daugherty - Last Filed: 12/18/20 16:55> Sign Out Data: Sign Out Comment: Presents with suicidal ideations, requesting voluntary placement. Medically cleared and awaiting mental health evaluation Last updated by oCle Rivera PA at 12/17/20 23:46
[2020-12-17 22:34] LABS: Abs Immature Grans 0.02 10^3/uL (0.0-0.06); Absolute Basophil Count 0.04 10^3/uL (0.0-0.2); Absolute Eosinophil Count 0.24 10^3/uL (0.0-0.7); Absolute Lymphocyte Count 2.67 10^3/uL (1.2-3.4); Absolute Monocyte Count 0.55 10^3/uL (0.1-0.8); Absolute Neutrophil Count 4.68 10^3/uL (1.2-6.7); Basophils % 0.5; Eosinophils % 2.9; HCT 33.2 % (36.0-46.0); HGB 9.9 g/dL (11.2-15.7); Immature Grans % 0.2; Lymphocytes % 32.6; MCH 20.9 pg (27.0-33.0); MCHC 29.8 % (32.0-36.0); MPV 9.6 fL (8.0-11.0); Monocytes % 6.7; Neutrophils % 57.1; Nucleated RBC 0 %; Platelet Count 361 10^3/uL (130-400); RBC 4.74 10^6/uL (3.93-5.22); RDW 17.9 % (11.7-14.6); RDW-SD 44.4 fL
[2020-12-17 22:42] LABS: Source Nasal/Nares
[2020-12-17 22:45] LABS: Microcytosis 2+
[2020-12-17 22:53] LABS: Salicylate < 2.8 mg/dL (<2.8)
[2020-12-17 22:57] LABS: ALT 46 U/L (14-59); AST 22 U/L (15-37); Albumin 3.5 g/dL (3.4-5.0); Alkaline Phosphatase 82 U/L (46-116); Anion Gap 8.4 mmol/L (3-11); BUN 16 mg/dL (7-18); Bilirubin, Total 0.1 mg/dL (0.2-1.0); CO2 25.6 mmol/L (21.0-32.0); CREATININE 0.8 mg/dL (0.55-1.02); Calcium 8.9 mg/dL (8.5-10.1); Chloride 106 mmol/L (98-107); Glucose 104 mg/dL (74-106); Potassium 3.9 mmol/L (3.5-5.1); Sodium 140 mmol/L (136-145); TSH (W/Ref FT4) 0.96 uIU/mL (0.36-3.74); Total Protein 7.4 g/dL (6.4-8.2)
[2020-12-17 22:58] LABS: *AMPHETAMINES SCREEN URINE Negative (Negative); *BARBITURATES SCREEN URINE Negative (Negative); *BENZODIAZEPINES SCREEN URINE Negative (Negative); Cannabinoids THC Negative (Negative); Cocaine Screen,Urine Negative (Negative); METHADONE URINE SCREEN Negative (Negative); OPIATES URINE SCREEN Negative (Negative); Tricyclic Antidepressants Negative (Negative)
[2020-12-17 22:58] LABS: ETHANOL BLOOD < 3.0 mg/dL (<3)
[2020-12-17 22:59] LABS: Acetaminophen < 2 ug/mL (10-30)
[2020-12-17 23:40] LABS: COVID-19 PCR Negative (Negative)
--- NOTE | 2020-12-18 00:20 | W.PM.HP.N ---
Date of service: 12/18/20 Time of Service: 00:20 Assessment and Plan Assessment and plan (1) Suicidal ideation: Status: Acute Assessment and plan: Depression with suicidal ideation. Will maintain precautions, and usual med regimen pending transfer. Incidental finding of progressive microcytic anemia; will add on iron studies. History of Present Illness History of Present Illness Chief Complaint: suicidal Narrative: 20 female with h/o depression, here voluntarily for recent increase in depression and thoughts of self harm. No plan for such and no steps taken. Presented here for evaluation. Medically cleared and admitted pending placement at psychiatric facility. Patient does note that December is anniversary of friend's suicide and she states she has had similar reactions in past at this time of year. No changes in meds. Has a psychiatrist but reports this is med management only, has been trying (w/o success) to get a therapist.. Review of Systems All systems reviewed & are unremarkable except as noted in HPI and below PFSH Medical History 504 plan Chronic serous otitis media PE TUBES -2001 Congenital hypothyroidism Hearing aid worn amplifier at school Learning difficulty HAS IEP Respiratory syncytial virus bronchiolitis HOSP Surgical History Myringotomy w/ PE (pressure equalizing) tubes Family History Mother Dental decay loss of several teeth Sister BMI,pediatric >= 95% Brother Substance abuse THC Anxiety Social History Smoking/Tobacco Use Status: Never Second Hand Exposure: No Smoking risk assessment performed?: Yes Alcohol Intake: current Alcohol Intake frequency: holidays/special occasions only Drug use: Occasionally Substance use type: other Details: States she uses edibles a couple x a month. States she does not have ready access to them. Household members: family Pets and animals: Yes Pets and animals: farm animals and other Details: GEESE Do you feel safe at home: Yes Do you feel safe in your relationship?: Yes Additional Social history: Works at [employer]. Meds Allergies and Home Medications Allergies Allergy/AdvReac Type Severity Reaction Status Date / Time macadamia nut oil Allergy Verified 12/17/20 22:04 No Known Drug Allergies Allergy Verified 12/17/20 22:04 DAIRY Allergy Mild Diarrhea Uncoded 12/17/20 22:04 Home Medications Medication Instructions Recorded Confirmed Type hydroxyzine pamoate 25 mg capsule 25 mg PO TID PRN #14 cap 08/30/20 12/17/20 Rx levothyroxine 112 mcg capsule 224 mcg PO DAILY #60 cap 08/30/20 12/17/20 Rx ondansetron 8 mg disintegrating 8 mg PO Q12H #7 tab 08/30/20 12/17/20 Rx tablet duloxetine 30 mg capsule,delayed 30 mg PO DAILY #30 cap 11/21/20 12/17/20 Rx release prazosin 1 mg capsule 1 mg PO QHS #30 cap 11/21/20 12/17/20 Rx Exam Narrative Exam Narrative: 140/80-, 100, 37.2, 20, 100% RA. HEENT atraumatic; neck supple; lungs clear; heart RRR; abdomen soft and NT; extremities /o edema; neuro Ox, flat affect, non-focal Results Labs Result diagrams: 12/17/20 22:26 12/17/20 22:26 Labs: Laboratory Results - last 24 hr 12/17/20 12/17/20 12/17/20 21:50 21:50 22:26 WBC RBC Hgb Hct MCV MCH MCHC RDW Plt Count MPV Immature Gran % Neutrophils % Lymphocytes % Monocytes % Eosinophils % Basophils % Nucleated RBC % Absolute Neutrophils Absolute Lymphocytes Absolute Monocytes Absolute Eosinophils Absolute Basophils RBC Morphology Microcytosis Sodium 140 Potassium 3.9 Chloride 106 Carbon Dioxide 25.6 Anion Gap 8.4 BUN 16 Creatinine 0.8 Estimated GFR/1.73 m2 >= 60.00 Glucose 104 Calcium 8.9 Total Bilirubin 0.1 L AST 22 ALT 46 Alkaline Phosphatase 82 Total Protein 7.4 Albumin 3.5 TSH 0.96 Urine Color Yellow Urine Clarity Clear Urine pH 7.0 Ur Specific [place] 1.020 Urine Protein Negative Urine Ketones Negative Urine Blood Negative Urine Nitrite Negative Urine Bilirubin Negative Urine Urobilinogen 0.2 Ur Leukocyte Esterase Negative Urine Glucose Negative Salicylates Urine Opiates Screen Negative Urine Methadone Screen Negative Acetaminophen Ur Barbiturates Screen Negative Ur Tricyclics Screen Negative Ur Amphetamines Screen Negative U Benzodiazepines Scrn Negative Urine Cocaine Screen Negative Ur THC Screen Negative Ethyl Alcohol < 3.0 COVID-19 Source SARS-CoV-2 (PCR) 12/17/20 12/17/20 12/17/20 22:26 22:26 22:35 WBC 8.20 RBC 4.74 Hgb 9.9 L Hct 33.2 L MCV 70.0 L MCH 20.9 L MCHC 29.8 L RDW 17.9 H Plt Count 361 MPV 9.6 Immature Gran % 0.2 Neutrophils % 57.1 Lymphocytes % 32.6 Monocytes % 6.7 Eosinophils % 2.9 Basophils % 0.5 Nucleated RBC % 0 Absolute Neutrophils 4.68 Absolute Lymphocytes 2.67 Absolute Monocytes 0.55 Absolute Eosinophils 0.24 Absolute Basophils 0.04 RBC Morphology See Below Microcytosis 2+ Sodium Potassium Chloride Carbon Dioxide Anion Gap BUN Creatinine Estimated GFR/1.73 m2 Glucose Calcium Total Bilirubin AST ALT Alkaline Phosphatase Total Protein Albumin TSH Urine Color Urine Clarity Urine pH Ur Specific [place] Urine Protein Urine Ketones Urine Blood Urine Nitrite Urine Bilirubin Urine Urobilinogen Ur Leukocyte Esterase Urine Glucose Salicylates < 2.8 Urine Opiates Screen Urine Methadone Screen Acetaminophen < 2 Ur Barbiturates Screen Ur Tricyclics Screen Ur Amphetamines Screen U Benzodiazepines Scrn Urine Cocaine Screen Ur THC Screen Ethyl Alcohol COVID-19 Source Nasal/Nares SARS-CoV-2 (PCR) Negative Last Vital Signs Temp 37.2 C 12/17/20 21:51 Pulse 100 H 12/17/20 21:51 Resp 20 12/17/20 21:51 BP 140/80 12/17/20 21:51 Pulse Ox 100 12/17/20 21:51
[2020-12-18 00:54] LABS: Iron 19 ug/dL (50-170); Total Iron Binding Capacity 380 ug/dL (250-450); Transferrin Sat 5 % (15-50)
[2020-12-18 01:07] LABS: Ferritin 4 ng/mL (8-252)
[2020-12-18 01:46] VITALS: BP 120/76; PULSE 94; RESP 16; TEMP 36.6; O2SAT 97
[2020-12-18] MEDS: DULoxetine 30 MG CAP PO (08:26)
[2020-12-18] MEDS: Levothyroxine 112 MCG TAB 224 MCG PO (08:26)
[2020-12-18 08:46] VITALS: BP 132/80; PULSE 89; RESP 16; TEMP 36.6; O2SAT 96
--- NOTE | 2020-12-18 10:24 | W.INMHPGNOTE ---
Date of service: 12/18/20 Time of Service: 10:25 Mental Health Crisis Note Presenting Issue How did you arrive at the ED and why did you come: Pt arrived to the ED on 12.17.2020 via her sister seeking a voluntary admission due to reported SI with intent and plan. Precipitating Factors Pt continues to endorse SI. She denied HI and does not have any signs of delusions. Disposition BEHAVIOR: Pt is very social and wants to share her thoughts and how her past has affected her negatively and positively. She is cooperative and engaged. EYE CONTACT: Pt makes good eye contact. MOOD: Pt's mood is depressed. AFFECT: Pt is tearful as she talks about her experiences. APPETITE: Pt reported that she has little appetite but is trying. She reported that she has struggled with body image for a while now. SLEEP(trouble falling/staying asleep: Pt reported she slept okay. Plan Pt will remain at [facility] pending admission to a psychiatric facility or her symptoms decrease where she can appropriately safety plan home. A huddle was had with her nurse and nursing stewarding supervisor as well as care management. Referrals were sent this am to [facility], , [facility] and . has a bed on the LGBTQ unit and will outreach if they can accommodate the Pt. All other hospitals are full. Signature Clinician's Name/Title: Veronica Burton MS, [facility] Emergency Services Clinician, [facility]
--- NOTE | 2020-12-18 11:21 | CMSP_ITS ---
- If Service Date Differs Date of service: 12/18/20 Time of Service: 11:21 Care Management Safety Plan Status: Voluntary - Reason for Wait Reason for Wait: Inpatient Admission VOLUNTARY FOR INPATIENT PSYCHIATRIC STABILIZATION. Patient is appropriate in all interactions since arriving at [facility]; Pt has demonstrated appropriate coping and communication skills, has articulated his or her needs and concerns and is fully engaged during staff interactions. Safety plan has been established with patient, and care team, to adhere to patient goals, identify restrictions based on behavioral status, address nut rition, and determine allowed personal belongings, tools for hygiene and personal care. Determine level of activity including ambulation, level of supervision, visitors, and determine privileges based on behaviors and level of engagement by pt. SAFETY PLAN: 1. Will remain on suicide precautions. In Paper Clothes 2. Will remain in room under direct supervision of one-on-one staff at all times provided by CPSO; KUSH, NEEDLE MOLDER molecular biology director. 3. May have paper cups, plates, finger foods as well as a cardboard spoon with which to eat meals. 4. Follow [facility] Management of the Admitted Behavioral Health Patient policy. 5. Comfort bath system, shower permitted at RN discretion. 6. No personal belongings at this time. 7. Visitors-No visitors at this time. 8. Activities: crayons, coloring books, books, music tablet, soft cart items permitted per RN discretion. 9. Bathroom privileges available in room without limitation. 10. Phone: incoming and outgoing calls permitted on cordless [facility] phone at RN discretion, and patient preference. 11. Due to VOLUNTARY status, if patient wishes to leave [facility], staff will contact [facility] Crisis Screener ([phone]) and On-Call Signal Engineer ([phone]) as soon as possible. In the event of elopement, notify [place] [employer] Police ([phone]). Patient is currently voluntarily at [facility] and seeking inpatient admission when a bed becomes available. [facility] Frontline Work Force Advisor will continue seeking placement. Please contact the [place] Worker Signal Engineer ([phone]) and [facility] Work Force Advisor ([phone]) for any needed changes in the Safety Plan. Safety plan has been provided to interdepartmental care team.
--- NOTE | 2020-12-18 11:21 | PDOC.CMSAFE ---
- If Service Date Differs Date of service: 12/18/20 Time of Service: 11:21 Care Management Safety Plan Status: Voluntary - Reason for Wait Reason for Wait: Inpatient Admission VOLUNTARY FOR INPATIENT PSYCHIATRIC STABILIZATION. Patient is appropriate in all interactions since arriving at [facility]; Pt has demonstrated appropriate coping and communication skills, has articulated his or her needs and concerns and is fully engaged during staff interactions. Safety plan has been established with patient, and care team, to adhere to patient goals, identify restrictions based on behavioral status, address nutrition, and determine allowed personal belongings, tools for hygiene and personal care. Determine level of activity including ambulation, level of supervision, visitors, and determine privileges based on behaviors and level of engagement by pt. SAFETY PLAN: 1. Will remain on suicide precautions. In Paper Clothes 2. Will remain in room under direct supervision of one-on-one staff at all times provided by CPSO; KUSH, CALCIMINER inspector and clerk. 3. May have paper cups, plates, finger foods as well as a cardboard spoon with which to eat meals. 4. Follow [facility] Management of the Admitted Behavioral Health Patient policy. 5. Comfort bath system, shower permitted at RN discretion. 6. No personal belongings at this time. 7. Visitors-No visitors at this time. 8. Activities: crayons, coloring books, books, music tablet, soft cart items permitted per RN discretion. 9. Bathroom privileges available in room without limitation. 10. Phone: incoming and outgoing calls permitted on cordless [facility] phone at RN discretion, and patient preference. 11. Due to VOLUNTARY status, if patient wishes to leave [facility], staff will contact [facility] Crisis Screener ([phone]) and On-Call Moderate Needs Teacher ([phone]) as soon as possible. In the event of elopement, notify [facility] Police ([phone]). Patient is currently voluntarily at [facility] and seeking inpatient admission when a bed becomes available. [facility] Frontline Food And Beverage Controller will continue seeking placement. Please contact the Director Dietetics Department Moderate Needs Teacher ([phone]) and [facility] Food And Beverage Controller ([phone]) for any needed changes in the Safety Plan. Safety plan has been provided to interdepartmental care team.
--- NOTE | 2020-12-18 13:56 | PGE_ITS ---
Date of Service Date of service: 12/18/20 Time of Service: 11:15 Assessment and Plan Assessment and plan (1) Suicidal ideation: Start date: 12/18/20 Start time: 11:15 Status: Acute Assessment and plan: Depression with suicidal ideation. Will maintain precautions, and usual med regimen pending transfer, seen by , [facility]. c/o anxiety will give ativan. continue CPSO (2) Anemia: Start date: 12/18/20 Start time: 11:15 Status: Chronic Assessment and plan: Iron 19, Transferrin 5 ferritin [address] on iron supplement with vitamin c for better absorption Qualifiers: Anemia type: iron deficiency Iron deficiency anemia type: other iron deficiency Qualified Code(s): D50.8 - Other iron deficiency anemias (3) Anxiety: Start date: 12/18/20 Start time: 11:15 Status: Acute Assessment and plan: as above Discussed with Dr. Barnes Subjective Subjective Patient reports: other Interval history since last seen: Continue to have thoughts of SI, also c/o anxiety will give low dose valium for this Exam Narrative Exam Narrative: . HEENT atraumatic; neck supple; lungs clear; heart RRR; abdomen soft and NT; extremities /o edema; neuro Ox, flat affect, non-focal Objective Last Vital Signs Temp 36.6 C 12/18/20 08:46 Pulse 89 12/18/20 08:46 Resp 16 12/18/20 08:46 BP 132/80 12/18/20 08:46 Pulse Ox 96 12/18/20 08:46 Laboratory Results - last 24 hr 12/17/20 12/17/20 12/17/20 21:50 21:50 22:26 WBC RBC Hgb Hct MCV MCH MCHC RDW Plt Count MPV Immature Gran % Neutrophils % Lymphocytes % Monocytes % Eosinophils % Basophils % Nucleated RBC % Absolute Neutrophils Absolute Lymphocytes Absolute Monocytes Absolute Eosinophils Absolute Basophils RBC Morphology Microcytosis Sodium 140 Potassium 3.9 Chloride 106 Carbon Dioxide 25.6 Anion Gap 8.4 BUN 16 Creatinine 0.8 Estimated GFR/1.73 m2 >= 60.00 Glucose 104 Calcium 8.9 Iron TIBC Transferrin % Sat Ferritin Total Bilirubin 0.1 L AST 22 ALT 46 Alkaline Phosphatase 82 Total Protein 7.4 Albumin 3.5 TSH 0.96 Urine Color Yellow Urine Clarity Clear Urine pH 7.0 Ur Specific [place] 1.020 Urine Protein Negative Urine Ketones Negative Urine Blood Negative Urine Nitrite Negative Urine Bilirubin Negative Urine Urobilinogen 0.2 Ur Leukocyte Esterase Negative Urine Glucose Negative Salicylates Urine Opiates Screen Negative Urine Methadone Screen Negative Acetaminophen Ur Barbiturates Screen Negative Ur Tricyclics Screen Negative Ur Amphetamines Screen Negative U Benzodiazepines Scrn Negative Urine Cocaine Screen Negative Ur THC Screen Negative Ethyl Alcohol < 3.0 COVID-19 Source SARS-CoV-2 (PCR) 12/17/20 12/17/20 12/17/20 22:26 22:26 22:35 WBC 8.20 RBC 4.74 Hgb 9.9 L Hct 33.2 L MCV 70.0 L MCH 20.9 L MCHC 29.8 L RDW 17.9 H Plt Count 361 MPV 9.6 Immature Gran % 0.2 Neutrophils % 57.1 Lymphocytes % 32.6 Monocytes % 6.7 Eosinophils % 2.9 Basophils % 0.5 Nucleated RBC % 0 Absolute Neutrophils 4.68 Absolute Lymphocytes 2.67 Absolute Monocytes 0.55 Absolute Eosinophils 0.24 Absolute Basophils 0.04 RBC Morphology See Below Microcytosis 2+ Sodium Potassium Chloride Carbon Dioxide Anion Gap BUN Creatinine Estimated GFR/1.73 m2 Glucose Calcium Iron TIBC Transferrin % Sat Ferritin Total Bilirubin AST ALT Alkaline Phosphatase Total Protein Albumin TSH Urine Color Urine Clarity Urine pH Ur Specific [place] Urine Protein Urine Ketones Urine Blood Urine Nitrite Urine Bilirubin Urine Urobilinogen Ur Leukocyte Esterase Urine Glucose Salicylates < 2.8 Urine Opiates Screen Urine Methadone Screen Acetaminophen < 2 Ur Barbiturates Screen Ur Tricyclics Screen Ur Amphetamines Screen U Benzodiazepines Scrn Urine Cocaine Screen Ur THC Screen Ethyl Alcohol COVID-19 Source Nasal/Nares SARS-CoV-2 (PCR) Negative 12/18/20 12/18/20 00:00 00:00 WBC RBC Hgb Hct MCV MCH MCHC RDW Plt Count MPV Immature Gran % Neutrophils % Lymphocytes % Monocytes % Eosinophils % Basophils % Nucleated RBC % Absolute Neutrophils Absolute Lymphocytes Absolute Monocytes Absolute Eosinophils Absolute Basophils RBC Morphology Microcytosis Sodium Potassium Chloride Carbon Dioxide Anion Gap BUN Creatinine Estimated GFR/1.73 m2 Glucose Calcium Iron 19 L TIBC 380 Transferrin % Sat 5 L Ferritin 4 L Total Bilirubin AST ALT Alkaline Phosphatase Total Protein Albumin TSH Urine Color Urine Clarity Urine pH Ur Specific [place] Urine Protein Urine Ketones Urine Blood Urine Nitrite Urine Bilirubin Urine Urobilinogen Ur Leukocyte Esterase Urine Glucose Salicylates Urine Opiates Screen Urine Methadone Screen Acetaminophen Ur Barbiturates Screen Ur Tricyclics Screen Ur Amphetamines Screen U Benzodiazepines Scrn Urine Cocaine Screen Ur THC Screen Ethyl Alcohol COVID-19 Source SARS-CoV-2 (PCR)
[2020-12-18] MEDS: diazePAM 2 MG TAB PO (14:41)
[2020-12-18 16:00] VITALS: BP 123/84; PULSE 80; RESP 18; TEMP 36.7; O2SAT 99
[2020-12-18] MEDS: Ferrous Sulfate 325 MG TAB PO (19:26)
[2020-12-18] MEDS: Ascorbic Acid 500 MG TAB PO (19:26)
[2020-12-18] MEDS: Prazosin 1 MG CAP PO (21:43)
--- NOTE | 2020-12-19 07:16 | NUR.NOTE ---
Nursing Note: At 0710 on 12/19/20, this RN went to perform bedside rounding on the pt. RN noted that pt. was asleep and asked the CPSO (Preston Bradley RN) to inform the RN when the pt. awoke, so that the RN could obtain VS, administer medications, and assess the pt. CPSO asked, How will I get ahold of you? RN then noted that the CPSO didn't have one of the earpiece radios, and informed the CPSO that they would go and get them one. CPSO asked, Is that the one that goes in your ear? RN stated, Yes it is. CPSO stated, No, I'm not going to wear that. I'll just call the nurses' station. RN will reassess as necessary.
[2020-12-19 08:28] VITALS: BP 124/82; PULSE 85; RESP 16; TEMP 36.6; O2SAT 100
[2020-12-19] MEDS: Ascorbic Acid 500 MG TAB PO (08:30)
[2020-12-19] MEDS: DULoxetine 30 MG CAP PO (08:30)
[2020-12-19] MEDS: Levothyroxine 112 MCG TAB 224 MCG PO (08:30)
[2020-12-19] MEDS: Ferrous Sulfate 325 MG TAB PO (08:30)
--- NOTE | 2020-12-19 09:13 | PDOC.CMIN ---
- If Service Date Differs Date of service: 12/19/20 Time of Service: 09:14 Care Management Initial Assess REASON FOR HOSPITALIZATION:: Depression, Suicidal Ideation PAST MEDICAL HISTORY/PAST SURGICAL HISTORY:: Medical History . 504 plan. Chronic serous otitis media. PE TUBES -2001. Congenital hypothyroidism. Hearing aid worn. amplifier at school. Learning difficulty. HAS IEP. Respiratory syncytial virus bronchiolitis. HOSP. Surgical History . Myringotomy w/ PE (pressure equalizing) tubes ADVANCE DIRECTIVES:: None on file Has patient been provided with info about the portal/API?: Yes Did the patient sign up for the portal?: No CODE STATUS:: Full Code INSURANCE COVERAGE / FINANCIAL ISSUES:: Medicaid PRIMARY CARE PHYSICIAN:: [facility]
--- NOTE | 2020-12-19 13:50 | MHPN_ITS ---
Date of service: 12/19/20 Time of Service: 13:50 Mental Health Crisis Note Presenting Issue How did you arrive at the ED and why did you come: Pt arrived on 12.18.2020 via family due to SI with plan and intent. She was seeking a voluntary placement. Precipitating Factors Pt reported she is still having SI and self-reported her risk as a 5/10 again today. She denied HI. There are no signs of delusions. Disposition BEHAVIOR: Pt is cooperative and engaged. EYE CONTACT: Pt makes good eye contact. MOOD: Pt reported that she is still depressed and anxious. AFFECT: Affect appeared normal. APPETITE: Pt was ordering lunch when this clinician arrived and she reported she is eating better. SLEEP(trouble falling/staying asleep: Pt reported no issues with sleep. Plan Pt was accepted by [facility] today and will be transported via [facility] today. Signature Clinician's Name/Title: Veronica Burton MS, [facility] Emergency Services Clinician, [facility]
--- NOTE | 2020-12-19 14:11 | CMDISCH_ITS ---
- If Service Date Differs Date of service: 12/19/20 Time of Service: 14:11 LACE Index Scoring Tool - Questions: Length of Stay (in days): 1 Acuity (Admit via E.D.?): Yes E.D. Visits: 4 - Answers: Total Score: 8 Risk of Readmission: Low Risk Care Management Discharge Reason for Hospitalization: Depression, Suicidal Ideation Discharge Plan: Transfer to [facility] via [facility] from [facility] for Psychiatric Eval and treatment. Patient/Family Education Needs: Review of discharge instruction and plan of discharge. Services Needed at Discharge: Psychiatric Facility, Transportation - MH Services (Omit if N/A) Current MH Services: Psychiatric Inp Referred to Internal [facility] (ED embedded) rifle case repairer?: No - Disposition Disposition: [facility] via : [facility]
--- NOTE | 2020-12-19 16:09 | NUR.NOTE ---
Nursing Note: Pt. stated that they are feeling depressed, down and sad. Pt. stated that they are feeling this way because they are away from their family. RN clarified, Do you mean you haven't seen them because of COVID? Pt. stated, No. I live with them. I just mean I miss them because I'm away from them while I'm here at the hospital and I've never been away from them for this long before. RN then asked pt. to clarify what it was that made them feel depressed enough to need to come to the hospital. Pt. stated that this month is the one year anniversary of one of their close friend's deaths and that that their friend by suicide. Pt. stated, The way they is very triggering for me. Pt. also stated, It's also just everything on the news. It's all so depressing. Especially when I see stories about how arce people are treated, since I'm arce. It all just sucks. Pt. stated that they are experiencing active suicidal ideations and that they have a clear suicide plan. Pt. stated, I don't have any plan for how I would kill myself here at the hospital, but I do have a clear plan for how I would kill myself if I were to go home. RN asked if pt. was willing to elaborate and pt. continued by stating, I have a whole bottle of Synthroid pills at home and I would take all of them. RN thanked the pt. for be willing to share this information with the RN. RN then asked the pt. to inform the CPSO and RN if these feelings worsen or change, so that their safety can be maintained. Pt. agreed. RN will reassess as necessary.
--- NOTE | 2020-12-19 17:42 | DSE_ITS ---
Date of service: 12/19/20 Time of Service: 17:42 DS: Diagnosis Discharge Diagnosis (1) Suicidal ideation: Start date: 12/19/20 Start time: 17:42 Status: Acute Asessment and Plan: Patient having SI, she has been accepted to [facility] for further treatment for transfer (2) Anemia: Start date: 12/19/20 Start time: 17:43 Status: Chronic Asessment and Plan: continue iron supplementation (3) Anxiety: Start date: 12/19/20 Start time: 17:43 Status: Chronic Asessment and Plan: Will defer to [facility] for further management discussed with Dr. Barnes Discharge Plan Disposition Patient Disposition: [facility] Condition: Stable Discharge Details Reason For Visit: DEPRESSION,SUICIDAL IDEATION Admit Date/Time: 12/18/20 00:29 Admit Provider: Scott Emmanuel Attending Provider: Scott Emmanuel Primary Care Provider: Devon Louie Hospital Course Hospital Course: 20 yo. female admitted to transition unit for SI. She was evaluated by and felt to be voluntary. She is having depression and thoughts of harming herself. She was feeling anxious yesterday and received a low dose of valium. Which was successful in helping with her anxiety. Today she was accepted to [facility] for further treatment. She will be transferred via [facility]. Home Meds and New Rx's Prescriptions: Continued ondansetron 8 mg tablet,disintegrating 8 mg PO Q12H Qty: 7 RF: 0 levothyroxine 112 mcg capsule 224 mcg PO DAILY Qty: 60 RF: 0 prazosin 1 mg capsule 1 mg PO QHS Qty: 30 RF: 0 No Action hydroxyzine pamoate [Vistaril] 25 mg capsule 25 mg PO TID PRN (Reason: panic attack(s)) Qty: 14 RF: 0 duloxetine [Cymbalta] 30 mg capsule,delayed release(DR/EC) 30 mg PO DAILY Qty: 30 RF: 0 Discharge Instructions Instructions: Depression (DC), Suicide Prevention (DC) Care Plan Goals: Transfer to [facility] Stand Alone Forms: Nursing Discharge Form Activity:: Activity as Tolerated Equipment/Supplies:: No Equipment Needed Diet:: Normal Diet Discharge Orders Discharge Orders: Discharge Order (Routine); Ordered 12/19/20 Ordered By: Emani Barnes Discharge Data Discharge Date/Time-TO BE ENTERED AT DEPARTURE: 12/19/20 13:16 DS: Summary Time Spent with Patient providing and/or coordinating discharge services: Less than 30 minutes Status at Discharge Functional status at discharge: independent ambulation Overall status at discharge: patient is not back to baseline Mental Status: other Speech and Movement: speech and movement normal Mood: other Affect: other Exam Narrative Exam Narrative: . HEENT atraumatic; neck supple; lungs clear; heart RRR; abdomen soft and NT; extremities /o edema; neuro Ox, flat affect, non-focal Psych Mental Status: other Speech and Movement: speech and movement normal Mood: other Affect: other DS: Data Vitals/I&O Vitals and I&O: Vital Signs Temperature 36.6 C 12/19/20 08:28 Temperature Source Skin 12/19/20 08:28 Pulse 85 12/19/20 08:28 Pulse Rhythm Regular 12/19/20 08:28 Respiratory Rate 16 12/19/20 08:28 Respiratory Effort Non-Labored 12/19/20 08:28 Respiratory Depth Normal 12/19/20 08:28 Respiratory Pattern Normal 12/19/20 08:28 Blood Pressure 124/82 12/19/20 08:28 Blood Pressure Position Sitting 12/17/20 21:51 Pulse Oximetry 100 12/19/20 08:28 Oxygen Delivery Method Room Air 12/19/20 08:28 Oxygen Flow Rate 0 12/19/20 08:28 Pain Level 0 12/19/20 11:30 Comment 12/19/20 11:30 Intake & Output 12/18/20 12/19/20 12/19/20 23:59 11:59 23:59 Intake Total 480 / 720 240 / 720 Balance 480 / 720 240 / 720 Intake: Oral 480 / 720 240 / 720 Other: Comment Voiding independently, urine not seen at this time Per pt. report, void x1 in the toilet. Voiding Methods Toilet Toilet [facility] Medical History 504 plan Chronic serous otitis media PE TUBES -2001 Congenital hypothyroidism Hearing aid worn amplifier at school Learning difficulty HAS IEP Respiratory syncytial virus bronchiolitis HOSP Surgical History Myringotomy w/ PE (pressure equalizing) tubes Family History Mother Dental decay loss of several teeth Sister BMI,pediatric >= 95% Brother Substance abuse THC Anxiety Social History Smoking/Tobacco Use Status: Never Second Hand Exposure: No Smoking risk assessment performed?: Yes Alcohol Intake: current Alcohol Intake frequency: holidays/special occasions only Drug use: Occasionally Substance use type: other Details: States she uses edibles a couple x a month. States she does not have ready access to them. Household members: family Pets and animals: Yes Pets and animals: farm animals and other Details: GEESE Do you feel safe at home: Yes Do you feel safe in your relationship?: Yes Additional Social history: Works at [employer].
== END 2020-12-19 13:16 | disposition short-term general hospital (02) ==
LOC: ER 12-18 00:37 → MS 12-18 01:40
PROVIDERS: Physician Assistant; Admitting Provider General Practice; Emergency Provider Emergency Medicine; PCP Pediatrics; Visit Provider General Practice
DX: R45.851 Suicidal ideations (principal); F32.9 Major depressive disorder, single episode, unspecified; F41.9 Anxiety disorder, unspecified; D50.8 Other iron deficiency anemias; E03.1 Congenital hypothyroidism without goiter; F81.9 Developmental disorder of scholastic skills, unspecified; Z20.822 Contact with and (suspected) exposure to COVID-19; F12.90 Cannabis use, unspecified, uncomplicated
CPT/HCPCS: 80053; 80307; 81025; 87635; 99285; 80320; 80329; 81003; 82728; 83540; 83550; 84443; 85025; 99217; 99218; G0378

== ENCOUNTER 2023-02-17 19:44 | Emergency (ER) | payer MEDICAID, SELFPAY ==
[2023-02-17 19:45] VITALS: BP 163/88; PULSE 92; RESP 18; TEMP 37.7; O2SAT 98
--- NOTE | 2023-02-17 20:03 | W.ED.GENAD ---
Discharge Plan Discharge Details Chief Complaint: PsychEval Primary Care Provider: [facility] ED Provider: Kale Christie Home Meds and New Rx's Prescriptions: No Action hydroxyzine pamoate [Vistaril] 25 mg capsule 25 mg PO TID PRN (Reason: panic attack(s)) Qty: 14 0RF Rx Instructions: take one or 2 capsules every 6 hours as needed for severe anxiety/panic ondansetron 8 mg tablet,disintegrating 8 mg PO Q12H Qty: 7 0RF Rx Instructions: take one tablet as needed for severe nausea/vomiting. may repeat in 12 hours if needed venlafaxine [Effexor XR] 150 mg capsule,extended release 24hr 150 mg PO DAILY Rx Instructions: Rx'd by KRISTI 02/09/21 - JN levothyroxine 112 mcg tablet 224 mcg PO DAILY Qty: 60 2RF lamotrigine [Lamictal] 25 mg tablet 200 mg PO ONCE Rx Instructions: Unable to get from regular prescriber on weekend. 3 day supply from PCP office while waiting Medical Decision Making Emergent evaluation of suicidal ideations. Initial differential includes major depressive disorder, bipolar disorder with depressive phase, substance-induced mood disorder. At this time the patient is very tearful and I am concerned for her safety and wellbeing. Given her suicidal ideation we will proceed with voluntary psychiatric placement. We will check lab work for medical clearance 2200: Lab work reviewed, patient is medically cleared. MH worker has been contacted to evaluate her. 2300: patient evaluated by MH worker. Recommended keeping in the ED overnight and she will re-evaluate her in the morning. Hydroxyzine dose given per patient request. Home meds ordered. Medical Records Medical records reviewed: Yes I reviewed the patient's medical records. Lab Data Lab results reviewed: Yes I reviewed the patient's lab results. HPI General Date/Time Provider Initiated Documentation: 02/17/23 19:47. Limitations to Documentation: no limitations. Information obtained by: patient. HPI Narrative: 22-year-old female with recent diagnosis of bipolar disorder, major depression and prior suicidal ideation presents for evaluation of increased suicidal thoughts. She reports this has been ongoing for the last 2 days. She states that 10 time she has had to stop herself from going through with it. She has a plan to kill herself by drowning herself in the bathtub or slitting her wrist with a razor. She says that she has not actually made an attempt. She has no hallucinations, is not hearing voices, no thoughts about hurting other people. She reports that she is compliant with her medications. She states that she just graduated from [employer] and has come back home. She says being back home has been a trigger of these feelings due to prior trauma there. She is requesting hospitalization Related Data Home Medications Medication Instructions Recorded Confirmed hydroxyzine pamoate 25 mg capsule 25 mg PO TID PRN panic attack(s) 08/30/20 02/17/23 (Vistaril) #14 caps ondansetron 8 mg disintegrating 8 mg PO Q12H #7 tabs 08/30/20 02/17/23 tablet venlafaxine 150 mg 150 mg PO DAILY 02/22/21 02/17/23 capsule,extended release 24 hr (Effexor XR) levothyroxine 112 mcg tablet 224 mcg (2 x 112 mcg) PO DAILY #60 03/24/21 02/17/23 tabs lamotrigine 25 mg tablet (Lamictal) 200 mg PO ONCE 02/17/23 02/17/23 Previous Rx's Medication Instructions Recorded hydroxyzine pamoate 25 mg capsule 25 mg PO TID PRN panic attack(s) 08/30/20 (Vistaril) #14 caps ondansetron 8 mg disintegrating 8 mg PO Q12H #7 tabs 08/30/20 tablet levothyroxine 112 mcg tablet 224 mcg (2 x 112 mcg) PO DAILY #60 03/24/21 tabs Allergies Allergy/AdvReac Type Severity Reaction Status Date / Time macadamia nut oil Allergy Verified 02/17/23 19:52 No Known Drug Allergies Allergy Verified 02/17/23 19:52 DAIRY Allergy Mild Diarrhea Uncoded 02/17/23 19:52 General Stated Complaint: PsychEval COLEMAN: 2 PFSH All Active Problems Anemia (Chronic) Bulimia (Chronic) Suicidal ideation (Acute) Major depression (Chronic) Suicidal ideations (Acute) Depression (Chronic) Nausea (Acute) Panic attack (Acute) Vomiting (Acute) Craving for particular food (Chronic) sugar Whiplash injury to neck (Acute) Neck pain (Acute) Acne (Acute) BMI (body mass index), pediatric, greater than 99% for age (Acute) Well adolescent visit (Acute) Anxiety (Chronic 08/20/16) Congenital hypothyroidism (Acute 12/26/12) Hearing loss (Acute 12/26/12) Medical History Hearing aid worn amplifier at school Learning difficulty HAS IEP Congenital hypothyroidism Chronic serous otitis media PE TUBES -2001 Respiratory syncytial virus bronchiolitis HOSP 504 plan Surgical History Myringotomy w/ PE (pressure equalizing) tubes Family History Mother Dental decay loss of several teeth Sister BMI,pediatric >= 95% Brother Substance abuse THC Anxiety Social History Smoking/Tobacco Use Status: Never Second Hand Exposure: No Smoking risk assessment performed?: Yes Alcohol Intake: current Alcohol Intake frequency: a few times a week Alcohol type: beer Drug use: Rarely Substance use type: marijuana and other Household members: family Housing: house Pets and animals: Yes Pets and animals: farm animals and other Details: GEESE Do you feel safe at home: Yes Do you feel safe in your relationship?: Yes Exam Narrative Exam Narrative: Review of Systems: All systems reviewed & are unremarkable except as noted in HPI and below Well-developed, tearful NACT PERRL, normal conjunctiva RRR Unlabored respiratory effort Nondistended abdomen Extremities w/o deformity, no cyanosis, no edema No rashes or lesions. no focal neurologic deficits +SI with plan, no HI Course Vital Signs Vital signs: Vital Signs Temperature 37.7 C H 02/17/23 19:45 Pulse 92 H 02/17/23 19:45 Respiratory Rate 18 02/17/23 19:45 Blood Pressure 163/88 H 02/17/23 19:45 Pulse Oximetry 98 02/17/23 19:45 Temperature 37.7 C H 02/17/23 19:45 Temperature Source Temporal Artery Scan 02/17/23 19:45 Pulse 92 H 02/17/23 19:45 Respiratory Rate 18 02/17/23 19:45 Respiratory Effort Normal, Non-Labored 02/17/23 19:54 Blood Pressure 163/88 H 02/17/23 19:45 Blood Pressure Position Sitting 02/17/23 19:45 Pulse Oximetry 98 02/17/23 19:45 Oxygen Delivery Method Room Air 02/17/23 19:45 Oxygen Flow Rate 0 02/17/23 19:45 Pain Level 3 02/17/23 19:45 PAWSS Have you Been Recently Intoxicated or Drunk Within the Last 30 days?: No Have you Ever Experienced Previous Episodes of Alcohol Withdrawal?: No Have you ever Experienced Withdrawal Seizures?: No Have you ever Experienced Delirium Tremens(DT)s?: No Have you ever undergone Alcohol Rehabilitation Treatment (i.e, inpt ot outpatient treatment programs)?: No Have you ever Experienced Blackouts?: No Have you ever Combined Alcohol with other Downers within the last 90 days?: No Have you ever Combined Alcohol with any other Substance of Abuse during the last 90 days?: No Positive Blood Alcohol level on Presentation? [PCS.BAL]: No Evidence of Increased Autonomic Activity (i.e. HR>120, tremor, sweating, agitation, nausea)?: No Result: 0
[2023-02-17 20:49] LABS: Bilirubin Negative (Negative); Blood Large (Negative); Clarity Clear (Clear); Glucose Negative (Negative); Ketones Negative (Negative); Leukocyte Esterase Negative (Negative); Nitrite Negative (Negative); Urobilinogen 0.2 mg/dL (Up to 0.2)
[2023-02-17 20:53] LABS: Source Nasal/Nares
[2023-02-17 20:57] LABS: Abs Immature Grans 0.02 10^3/uL (0.0-0.06); Absolute Basophil Count 0.02 10^3/uL (0.0-0.2); Absolute Lymphocyte Count 1.76 10^3/uL (1.2-3.4); Absolute Monocyte Count 0.37 10^3/uL (0.1-0.8); Basophils % 0.3; HCT 38.9 % (36.0-46.0); HGB 12.6 g/dL (11.2-15.7); Immature Grans % 0.3; Lymphocytes % 23.2; MCHC 32.4 % (32.0-36.0); MCV 80 fL (80-95); MPV 9.3 fL (8.0-11.0); Monocytes % 4.9; Neutrophils % 71.3; Platelet Count 304 10^3/uL (130-400); RBC 4.84 10^6/uL (3.93-5.22); RDW 15.2 % (11.7-14.6); RDW-SD 44.1 fL; WBC 7.57 10^3/uL (4.4-10.8)
[2023-02-17 20:58] LABS: Bacteria Rare HPF (Negative); C & S Indicated? No; Crystals Few Amorphous HPF (Negative); Epithelial Cells Rare HPF (Negative); Mucus Trace (Negative); Other Cells Negative (Negative); WBC Negative HPF (0-5)
[2023-02-17 21:19] LABS: ALT 17 U/L (14-59); AST 15 U/L (15-37); Albumin 3.5 g/dL (3.4-5.0); Alkaline Phosphatase 87 U/L (46-116); Anion Gap 11.2 mmol/L (3-11); BUN 13 mg/dL (7-18); Bilirubin, Total 0.1 mg/dL (0.2-1.0); CO2 24.8 mmol/L (21.0-32.0); CREATININE 0.9 mg/dL (0.55-1.02); Calcium 8.7 mg/dL (8.5-10.1); Chloride 104 mmol/L (98-107); Glucose 115 mg/dL (74-106); Potassium 3.9 mmol/L (3.5-5.1); Sodium 140 mmol/L (136-145)
[2023-02-17 21:28] LABS: ETHANOL BLOOD < 3.0 mg/dL (<10)
[2023-02-17 21:30] LABS: COVID-19 PCR Negative (Negative)
[2023-02-17 21:36] LABS: FREE T4 1.03 ng/dL (0.76-1.46)
[2023-02-17 21:38] LABS: Acetaminophen < 2 ug/mL (10-30); Salicylate < 2.8 mg/dL (<2.8)
--- NOTE | 2023-02-17 23:13 | W.EDPROG ---
Date of service: 02/17/23 Time of Service: 23:13 Medical Decision Making This patient was signed out to me. Please see previous notes for h&P and initial eval. In brief, 22yo F with hx depression, bipolar, presenting voluntarily with SI, plan to cut herself or drown herself in the bathtub. Medically cleared. Crisis evaluated; plan to hold in the ED and reassess in the morning. Home meds ordered. No acute behavioral events overnight. No complaints. Slept most of the night. Signed out to oncoming physician, plan for crisis re-eval. Sign Out Sign Out Data: Sign Out Comment: patient with history of depression, bipolar, 2 days of SI. medically cleared. Eval'd by psych and recommend holding her overnight and they will reassess her in the morning. meds, diet ordered. Last updated by Kale Christie MD at 02/17/23 23:05 Discharge Plan Discharge Details Chief Complaint: PsychEval Primary Care Provider: [facility] ED Provider: Bekah Tomlinson Home Meds and New Rx's Prescriptions: No Action hydroxyzine pamoate [Vistaril] 25 mg capsule 25 mg PO TID PRN (Reason: panic attack(s)) Qty: 14 0RF Rx Instructions: take one or 2 capsules every 6 hours as needed for severe anxiety/panic ondansetron 8 mg tablet,disintegrating 8 mg PO Q12H Qty: 7 0RF Rx Instructions: take one tablet as needed for severe nausea/vomiting. may repeat in 12 hours if needed venlafaxine [Effexor XR] 150 mg capsule,extended release 24hr 150 mg PO DAILY Rx Instructions: Rx'd by KRISTI 02/09/21 - AK[facility] levothyroxine 112 mcg tablet 224 mcg PO DAILY Qty: 60 2RF lamotrigine [Lamictal] 25 mg tablet 200 mg PO ONCE Rx Instructions: Unable to get from regular prescriber on weekend. 3 day supply from PCP office while waiting
[2023-02-17] MEDS: hydrOXYzine PAMOATE 25 MG CAP PO (23:16)
--- NOTE | 2023-02-18 00:57 | PDOC.MHCN_ITS ---
Date of service: 02/17/23 Time of Service: 00:57 PHQ-9 Over the last 2 weeks, how often have you been bothered by any of the following problems? 1. Little interest or pleasure in doing things: more than half the days 2. Feeling down, depressed, or hopeless: nearly every day 3. Trouble falling or staying asleep, or sleeping too much: nearly every day 4. Feeling tired or having little energy: nearly every day 5. Poor appetite or overeating: nearly every day 6. Feeling bad about yourself - or that you are a failure or have let yourself and your family down: more than half the days 7. Trouble concentrating on things, such as reading the newspaper or watching television: more than half the days 8. Moving or speaking so slowly that other people could have noticed? - Or the opposite - being so fidgety or restless that you have been moving around a lot more than usual: more than half the days 9. Thoughts that you would be better off or of hurting yourself in some way: nearly every day Total score: 23 If you checked off any problems, how difficult have these problems made it for you to do your work, take care of things at home, or get along with other people?: very difficult PHQ-9 Results: Positive Source: Developed by Drs. Yazan Holcomb, Nettie Phillips, Isacc Minor and colleagues, with an educational alaina from [employer]. Suicide Severity Rate CSSRS Have you wished you were or wished you could go to sleep and not wake up?: Yes Have you actually had any thoughts of killing yourself?: Yes CSSRS2 Have you been thinking about how you might do this?: Yes Have you had these thoughts and had some intention of acting on them?: Yes Have you started to work out or worked out the details of how to kill yourself? Do you intend to carry out this plan?: Yes CSSRS3 Have you ever done anything, started to do anything or prepared to do anything to end your life?: No Screening Score Total Score: 4 Screening: Positive Mental Health Emergency Note Release [facility] release signed:: Yes Reason for Visit The client arrived tonight with c/o back pain and SI. [facility] requested evaluation due to SI. In the last 2 weeks has the pt presented for ES prior to today?: Unknown Client Information Client is: Adult Outpatient Well Housed: Yes Non Suicidal Self Injury Current: No History: No Safety Risk/Harm to Self or Others Current Ideation to Harm Self or Others: Yes to self. (overdose on pills in her room or drown herself in the tub. ) Intent: yes, has intent. Plan: yes,has a plan. History of suicide attempt: No history of suicide attempt reported Risk: Does risk to harm exist?: yes. Access to means: Yes. Types of Means: Other weapons and Medication. Counseling provided: Yes Risk: Moderate Risk Duty to warn indicated: No Asssessment/Mental Status Appearance: Disheveled Attitude: Cooperative Behavior: Unremarkable Speech: Normal Affect: Cogruent with mood Mood: Depressed and Anxious Thought process: Unremarkable Hallucinations: No Delusions: No Attention: Unremarkable Perception: Not impaired Orientation: Fully orientated Insight: Good Judgement: Good Neurovegetative Symptoms Sleep: Increase (Sleeping too much or not at all ) Appetitie: Increase (Eating too much or not at all ) Interests: Decrease Energy: Decrease Libido: Not applicable Substance Use: Do you use nicotine?: Yes Have you used substances in the last 7 days?: No Additional Issues: Assaultive/Threatening Behavior: No Medical Concerns: No Client engaged in active self harm w/weapon: No Threatening to run away: No Child reported abuse/neglect: No Voluntarily presenting for services: Yes Domestic violence is a concern: No Extreme Psychosis or extreme behavior is present: No Impression The client is a 22 year old single, female who reports that she is diagnosed with Borderline personality disorder. She has been hospitalized twice for SI both in or around 2020 per her report. She reported that she takes her medications as prescribed and has an upcoming therapy appointment with [facility] early next (02.21.23). She reported that she tried to wait until her appointment however, the urges kept getting stronger and the only thing that kept her from following through tonight were her 2 and 3 year old nieces who were in the home. She is diagnosed with MDD moderate. She is seeking voluntary placement. Plan/Disposition Recommended Disposition: Hospitalization (referrals sent ) No. Plan: The client ami katherin at [facility] pending admission to a psychiatric facility. She will be assessed daily b [facility]. Person reported agreement to plan: Yes Reports/communication Outcome discussed with: ED/Personnel Final Disposition/Discharge Transportation Checklist completed and faxed: No
[2023-02-18] MEDS: Levothyroxine 112 MCG TAB 224 MCG PO (06:31)
[2023-02-18] MEDS: Venlafaxine 150 MG CAPCR PO (08:39)
[2023-02-18] MEDS: lamoTRIgine 100 MG TAB 200 MG PO (08:39)
--- NOTE | 2023-02-18 11:47 | PDOC.MHPN2 ---
Date of service: 02/18/23 Time of Service: 10:07 Mental Health Emergency Note Release [facility] release signed:: Yes Reason for Visit The client arrived on 02/17 with chief complaint of back pain, however when in triage she endorsed suicidal ideations. When the client was assessed, last evening is willing to accept voluntary placement. The client is seen this morning for re-assessment via zoom at [facility] ED. In the last 2 weeks has the pt presented for ES prior to today?: No Impression The client is a 22 year old single, female that lives in [place], [place] with her parents and siblings. The client reports that she is diagnosed with Borderline personality disorder. Per the clients report she has been hospitalized twice for SI both in or around 2020 once at [place] and the other time at [facility]. She reported that she takes her medications as prescribed and has an upcoming therapy appointment with [facility] early next (.06.14). This morning the client is tearful during the assessment stating that she feels like nobody understands what she is going through and is not supportive of her. The client reports that she slept well, due to taking medication to assist and her appetite is still poor. The client reports that she is currently endorsing suicidal ideation with plan to take a lot of medications, sit in the bathtub, and slit her wrists until she if she were to be released from the hospital. This administrative underwriter asks the client on a scale of 0-10 with 0 being that she would be safe and 10 being that she would hurt herself if she were to leave the hospital a 10/10. Plan/Disposition Recommended Disposition: Hospitalization (Referrals faxd to [facility], [facility], , and [facility]. ) No. Plan: The client will remain at [facility] ED on voluntary status pending placement at an inpatient facility. Referrals have been faxed to [facility], [facility], , and [facility]. The client will be re-assessed by [facility] daily until placement is secured. Person reported agreement to plan: Yes Facilities contacted if Applicable [place] Not accepted, (under review) Other [facility] Not accepted, Only accepting in house referrals [facility] Not accepted, (under review) [facility] Not accepted, (under review) Other Reports/communication Outcome discussed with: ED/Personnel (verbal passover given to [facility] ED provider Dr. Mitchell)
[2023-02-18 11:56] VITALS: BP 117/78; PULSE 77; O2SAT 97
--- NOTE | 2023-02-18 12:52 | W.EDPROG ---
Date of service: 02/18/23 Time of Service: 16:44 Medical Decision Making Received pt in sign out pending psych re-eval this am. I spoke to psych, looking for bed, calling facilities this am. 1538 - spoke to Anh at [facility] for doc to doc, have open bed and will accept in transfer. Sign Out Sign Out Data: Sign Out Comment: patient with history of depression, bipolar, 2 days of SI. medically cleared. Eval'd by psych and recommend holding her overnight and they will reassess her in the morning. meds, diet ordered. Last updated by Kale Christie MD at 02/17/23 23:05 Sign Out Comment: Voluntary, SI, plan to cut or drown herself in tub. Medically cleared. Pending psych reassessment. Last updated by Bekah Tomlinson MD at 02/18/23 06:56 Discharge Plan Disposition Patient Disposition: Psychiatric Hospital/Unit Specific Psychiatric Facility: [facility] Condition: Stable Discharge Details Clinical Impression: Suicidal ideations Primary Care Provider: [facility] ED Provider: Yazan Mitchell Home Meds and New Rx's Prescriptions: No Action hydroxyzine pamoate [Vistaril] 25 mg capsule 25 mg PO TID PRN (Reason: panic attack(s)) Qty: 14 0RF Rx Instructions: take one or 2 capsules every 6 hours as needed for severe anxiety/panic ondansetron 8 mg tablet,disintegrating 8 mg PO Q12H Qty: 7 0RF Rx Instructions: take one tablet as needed for severe nausea/vomiting. may repeat in 12 hours if needed venlafaxine [Effexor XR] 150 mg capsule,extended release 24hr 150 mg PO DAILY Rx Instructions: Rx'd by KRISTI 02/09/21 - [facility] levothyroxine 112 mcg tablet 224 mcg PO DAILY Qty: 60 2RF lamotrigine [Lamictal] 25 mg tablet 200 mg PO ONCE Rx Instructions: Unable to get from regular prescriber on weekend. 3 day supply from PCP office while waiting
[2023-02-18] MEDS: Nicotine 4 MG GUM CH (14:20)
[2023-02-18 15:44] VITALS: BP 116/79; PULSE 82; O2SAT 98
[2023-02-20 12:15] LABS: Lamotrigine 2.9 mcg/mL (3.0-15.0)
== END 2023-02-18 18:48 ==
PROVIDERS: Emergency Medicine; Emergency Provider Emergency Medicine; PCP Student in an Organized Health Care Education/Training Program
DX: R45.851 Suicidal ideations (principal); F31.9 Bipolar disorder, unspecified; F32.9 Major depressive disorder, single episode, unspecified; Z20.822 Contact with and (suspected) exposure to COVID-19
CPT/HCPCS: 00123; 80053; 80175; 81025; 87635; 96127; 99285; 80320; 80329; 81003; 81015; 84439; 84443; 85025

== ENCOUNTER 2023-03-07 05:12 | Outpatient (CLI) | payer MEDICAID, SELFPAY ==
[2023-03-07 16:58] LABS: TSH (W/Ref FT4) 19.14 uIU/mL (0.36-3.74)
[2023-03-07 17:15] LABS: FREE T4 1.09 ng/dL (0.76-1.46)
== END 2023-03-07 05:13 | disposition home or self-care (01) ==
PROVIDERS: PCP Student in an Organized Health Care Education/Training Program; Visit Provider Student in an Organized Health Care Education/Training Program
DX: E03.1 Congenital hypothyroidism without goiter (principal)
CPT/HCPCS: 36415; 84439; 84443

== ENCOUNTER 2023-06-01 01:30 | Emergency (ER) | payer MEDICAID, SELFPAY ==
--- NOTE | 2023-06-01 01:30 | DI.CT_ITS ---
Exam(s) CT ABDOMEN PELVIS WO EXAM: CT ABDOMEN PELVIS WO CLINICAL HISTORY: left flank pain and hematuria. TECHNIQUE: Imaging Protocol: Axial computed tomography images with coronal and sagittal reformatted images were created and reviewed. Oral: / no COMPARISON: No exams were available for comparison FINDINGS: Lung Bases: No acute findings. Liver: Normal density. No measurable mass. Gallbladder and biliary tract: No radiodense calculus or dilation. Pancreas: Normal density, no abnormal calcifications or inflammatory process. Spleen: Normal. Kidneys: Normal size, contour and axis. No radiodense stones or obstructive uropathy. No suspicious m asses seen. Adrenal glands: No masses seen. Incidental right adrenal calcification. Lymph nodes: Small mesenteric lymph nodes, consistent with reactive lymph nodes. Vasculature: Abdominal aorta non-dilated. Soft tissues: Unremarkable. Bladder: Question mild wall thickening versus under distension.. No mass or calculi. Bowel: No obstruction or bowel wall thickening. Peritoneal cavity: No ascites, collection or mesenteric inflammatory response. Reproductive organs: Unremarkable. Bones: Unremarkable for age. IMPRESSION: No acute abnormality in the abdomen or pelvis. Small mesenteric lymph nodes, likely reactive. Question mild bladder wall thickening versus under di stension. RADIATION DOSE DELIVERED: Total DLP DATA REPOSITORY: All CT scans at this facility are submitted to the National Radiology Data Registry (NRDR) Dose Index Registry (DIR) with the [employer] ([employer]). RADIATION OPTIMIZATION: All CT scans at this facility use at least one of these dose optimization te chniques: automated exposure control; mA and/or kV adjustment per patient size (includes targeted exa ms where dose is matched to clinical indication); or iterative reconstruction.
--- OUTSIDE RECORDS SUMMARY | 2023-06-01 01:35 | XMS_ITS | Continuity of Care Document ---
Author Name Unknown Organization Psych Address [address] [place] [address] Care Team Providers Care Hat Maker Name Role Phone Unknown PCP, Unknown PCP Primary Care Physician Unavailable Encounter Date(s): 12/19/20 - 12/29/20 Psych [address] [place], [place] [address] [facility] Encounter Diagnosis Bulimia(Discharge Diagnosis) - 12/20/20 Hypothyroidism(Discharge Diagnosis) - 12/20/20 Mood disorder(Discharge Diagnosis) - 12/20/20 Discharge Disposition: Home or Self Care Attending Physician: ARRON PANG MD Admitting Physician: ARRON PANG MD Allergies, Adverse Reactions, Alerts Substance Reaction Severity Status Nuts Macadamia Nuts hives Active Assessment and Plan Extracted from: Title:Physician Progress Note - Psychiatric Auth or:MARIELA GARCIA NP Date:12/28/20 Pt appears overall improved with resolution of SI, stable mood. Treatment compliant and tolerating medication. Medication called into pt's preferred pharmacy. Anticipated discharge back home tomorrow. Time TBD. 1.?? Mood disorder ?? F39 2.?? Bulimia ?? F50.2 3.?? Hypothyroidism ?? E03.9 Orders: hydrOXYzine, 25 mg = 1 cap(s), Oral, q6hr, PRN PRN: as needed for anxiety, X 14 day(s), # 56 cap(s), 0 Refill(s), Pharmacy: [facility] #[id number] lamoTRIgine, 25 mg = 1 tab(s), Oral, Daily, # 30 tab(s), 0 Refill(s), Pharmacy: [facility] #[id number] levothyroxine, 224 mcg = 2 tab(s), Oral, Daily, # 60 tab(s), 0 Refill(s), Pharmacy: [facility] #[id number] prazosin, 1 mg = 1 cap(s), Oral, qHS, # 30 cap(s), 0 Refill(s), Pharmacy: [facility] #[id number] venlafaxine, 75 mg = 1 cap(s), Oral, Daily, # 30 cap(s), 0 Refill(s), [facility]acy: [facility] #[id number] Inpatient Effexor XR, 75 mg, 1 cap(s), Oral, Daily LaMICtal, 25 mg, 1 tab(s), Oral, Daily levothyroxine, 224 mcg, 2 tab(s), Oral, Daily melatonin, 3 mg, 1 tab(s), Oral, qHS, PRN Milk of Magnesia, 30 mL, Oral, Daily, PRN Motrin, 600 mg, 1 tab(s), Oral, q6hr, PRN Mylanta, 30 mL, Oral, QID, PRN prazosin, 1 mg, 1 cap(s), Oral, qHS Tylenol, 650 mg, 2 tab(s), Oral, q4hr, PRN Vistaril, 25 mg, 1 tab(s), Oral, q4hr, PRN Home Effexor XR 75 mg oral capsule, extended release, 75 mg, 1 cap(s), Oral, Daily hydrOXYzine pamoate 25 mg oral capsule, 25 mg, 1 cap(s), Oral, q6hr, PRN LaMICtal 25 mg oral tablet, 25 mg, 1 tab(s), Oral, Daily levothyroxine 112 mcg (0.112 mg) oral tablet, 224 mcg, 2 tab(s), Oral, Daily prazosin 1 mg oral capsule, 1 mg, 1 cap(s), Oral, qHS ?? I certify that inpatient psychiatric hospital admission is medically necessary for treatment which could reasonably be expected to improve the patient's condition: _Yes In need of ILOC due to:_ suicide prevention Is the patient involuntary? _No ?? Treatment Plan Discussed and Reviewed with Patient:_Yes Receiving active treatment through medication, individual, group, and milieu therapy Extracted from: Title:Physician Progress Note - Psychiatric Auth or:MARIELA GARCIA NP Date:12/27/20 Pt remains safe on Unit. No SI. Benefiting from social supports.??Treatment compliant. Continue current rx. Pt can most likely d/c in 1-2 days if she continues on current trajectory. Treatment team will f/u tomorrow. 1.?? Mood disorder ?? F39 2.?? Bulimia ?? F50.2 3.?? Hypothyroidism ?? E03.9 Inpatient Effexor XR, 75 mg, 1 cap(s), Oral, Daily LaMICtal, 25 mg, 1 tab(s), Oral, Daily levothyroxine, 224 mcg, 2 tab(s), Oral, Daily melatonin, 3 mg, 1 tab(s), Oral, qHS, PRN Milk of Magnesia, 30 mL, Oral, Daily, PRN Motrin, 600 mg, 1 tab(s), Oral, q6hr, PRN Mylanta, 30 mL, Oral, QID, PRN prazosin, 1 mg, 1 cap(s), Oral, qHS Tylenol, 650 mg, 2 tab(s), Oral, q4hr, PRN Vistaril, 25 mg, 1 tab(s), Oral, q4hr, PRN Home No active home medications ?? I certify that inpatient psychiatric hospital admission is medically necessary for treatment which could reasonably be expected to improve the patient's condition: _Yes In need of ILOC due to:_Si prevention Is the patient involuntary? _No ?? Treatment Plan Discussed and Reviewed with Patient:_Yes Receiving active treatment through medication, individual, group, and milieu therapy Extracted from: Title:Physician Progress Note - Psychiatric Auth or:ARRON PANG MD Date:12/26/20 Patient continues to report depression and passive suicidal ideations. She needs medication management and benefits from hospitalization for safety and stabilization. 1.?? Mood disorder ?? F39 ??continue lamictal 25mg daily start Effexor 75mg daily continue vistaril 25mg prn for anxiety/insomnia 2.?? Bulimia ?? F50.2 ??monitoring - patient is eating normally on the unit 3.?? Hypothyroidism ?? E03.9 ??continue synthroid Inpatient LaMICtal, 25 mg, 1 tab(s), Oral, Daily levothyroxine, 224 mcg, 2 tab(s), Oral, Daily melatonin, 3 mg, 1 tab(s), Oral, qHS, PRN Milk of Magnesia, 30 mL, Oral, Daily, PRN Motrin, 600 mg, 1 tab(s), Oral, q6hr, PRN Mylanta, 30 mL, Oral, QID, PRN prazosin, 1 mg, 1 cap(s), Oral, qHS Tylenol, 650 mg, 2 tab(s), Oral, q4hr, PRN Vistaril, 25 mg, 1 tab(s), Oral, q4hr, PRN Home No active home medications I certify that inpatient psychiatric hospital admission is medically necessary for treatment which could reasonably be expected to improve the patient's condition: y In need of ILOC due to: SI, depression Is the patient involuntary? n Treatment Plan Discussed and Reviewed with Patient:y Receiving active treatment through medication, individual, group, and milieu therapy Extracted from: Title:Physician Progress Note - Psychiatric Auth or:PARISA OLIVER MD Date:12/24/20 This is a 20yo woman admitte d for depression with suicidal ideations. She reports longitudinal history of symptoms suggesting mood disorder including past episodes of hypomania. She also reported symptoms of eating disorder. She identified??multiple psychosocial difficulties that contribute to her??depressive mood??and asked to start outpatient psychotherapy. She reported feeling in crisis and suicidal at the time of admission and met criteria for voluntary psychiatric hospitalization.?? We are continuing to??slowly increase Lamictal to see if it helps with??depressive symptoms and??mood stabilization. 1.?? Mood disorder ?? F39 2.?? Bulimia ?? F50.2 3.?? Hypothyroidism ?? E03.9 Inpatient LaMICtal, 25 mg, 1 tab(s), Oral, Daily levothyroxine, 224 mcg, 2 tab(s), Oral, Daily melatonin, 3 mg, 1 tab(s), Oral, qHS, PRN Milk of Magnesia, 30 mL, Oral, Daily, PRN Motrin, 600 mg, 1 tab(s), Oral, q6hr, PRN Mylanta, 30 mL, Oral, QID, PRN prazosin, 1 mg, 1 cap(s), Oral, qHS Tylenol, 650 mg, 2 tab(s), Oral, q4hr, PRN Vistaril, 25 mg, 1 tab(s), Oral, q4hr, PRN Home No active home medications ?? I certify that inpatient psychiatric hospital admission is medically necessary for treatment which could reasonably be expected to improve the patient's condition: _ In need of ILOC due to:_ Is the patient involuntary? _ Did the patient receive a court order for involuntary medication? _ If Yes: Effects/benefits of the medication:_ Side-effects and treatment of side-effects: _ The continued implementation of the court order for involuntary medication remains necessary because: The patient still lacks capacity to make medication decisions? _ The patient is accepting medication only because of the court order? _ The implementation of the involuntary medication is still necessary? _ ?? Treatment Plan Discussed and Reviewed with Patient:_ Receiving active treatment through medication, individual, group, and milieu therapy Extracted from: Title:History & Physical - Psychiatric Author:RUBÉN PANG MD Date:12/20/20 Reason for Admission Suicidal ideations, depression Substance Abuse History Patient admitted using CBD at times. She tried cannabis once and it caused her a panic attack. She admitted drinking alcohol wit a friend once but has stopped doing that. Mental Status Exam General Appearance:??good eye contact, engages well in telehealth interview with psychiatrist Muscle Strength and Tone:??No abnormal movements, no tremors Gait:??Normal Mood and Affect:??Mood depressed, sad, affect sad, reactive Speech:??Average rate, volume and prosody Thought Process:??Logical, goal-directed Associations:??Intact Thought Content:??Admitted recent??SI with plan to overdose, no HI, safe on the unit, no apparent delusion, paranoia or AVH Orientation:??x4 Attention Span and Concentration:??Fair for interview Recent and Remote Memory:??Fair for interview Language:??Normal Fund of Knowledge:??Average Judgment and Insight:??Fair Assessment/Plan This is a 20yo woman who presents for depression with suicidal ideations. She reports longitudinal history of symptoms suggesting mood disorder including past episodes of hypomania. She also reported symptoms of eating disorder. She identified??multiple psychosocial difficulties that contribute to her??depressive mood??and asked to start outpatient psychotherapy. She reported feeling in crisis and suicidal at the time of admission and met criteria for voluntary psychiatric hospitalization. Diagnosis 1.?? Mood disorder ?? F39 Discontinue cymbalta considering starting lamictal continue prazosin 1mg qHS 2.?? Bulimia ?? F50.2 3.?? Hypothyroidism ?? E03.9 Orders: acetaminophen, 650 mg = 2 tab(s), Tab, Oral, q4hr PRN pain/fever, Start date 12/19/20 16:06:00 EDT, Routine Al hydroxide/Mg hydroxide/simethicone, 30 mL, Susp, Start date 12/19/20 16:05:00 EDT, Oral, QID PRN dyspepsia, Routine hydrOXYzine, 25 mg = 1 tab(s), Tab, Oral, q4hr PRN anxiety, Start date 12/19/20 16:07:00 EDT, Routine ibuprofen, 600 mg = 1 tab(s), Tab, Oral, q6hr PRN pain, Start date 12/19/20 16:06:00 EDT, Routine levothyroxine, 224 mcg = 2 tab(s), Tab, Oral, Daily, Start date 12/20/20 8:00:00 EDT, Routine magnesium hydroxide, 30 mL, Susp, Start date 12/19/20 16:05:00 EDT, Oral, Daily PRN constipation, Routine melatonin, 3 mg = 1 tab(s), Tab, Oral, qHS PRN insomnia, Start date 12/19/20 16:06:00 EDT, Routine prazosin, 1 mg = 1 cap(s), Cap, Oral, qHS, Start date 12/19/20 21:00:00 EDT, Routine Admit to Psychiatric Unit Coronavirus SARS-COV-2 [facility]patient [facility]iatric [facility] Quality Measures Resuscitation Status Safety Checks Substance Abuse Quality Measures Tobacco Cessation Quality Measures Up ad Radha Plan The patient was admitted on a voluntary basis and placed on 15 minute checks for safety and stabilization.??Patient will be evaluated by nursing, social work and occupational therapy.??Patient will be enrolled in individual, group and milieu therapies. We will contact collaterals and outpatient providers for continuity of care and will work with patient on discharge planning. Functional Status 12/29/20 ADLs Independent Immunizations Given and Recorded Vaccine Date Status Refusal Reason Pfizer COVID-19 mRNA BNT-162b2 vacc 1 09/29/20 Rec orded Pfizer COVID-19 mRNA BNT-162b2 vacc 2 09/09/20 Rec orded 1Result Comment: [12/20/2020] [facility] #[id number] 2Result Comment: [12/20/2020] [facility] ([facility] #[id number] Medications Effexor XR 75 mg oral capsule, extended release 75 mg = 1 cap(s), Oral, Daily, # 30 cap(s), 0 Refill(s), Pharmacy: [facility] #[id number] Start Date: 12/28/20 Stop Date: 01/27/21 Status: Ordered hydrOXYzine pamoate 25 mg oral capsule 25 mg = 1 cap(s), Oral, q6hr, PRN PRN: as needed for anxiety, X 14 day(s), # 56 cap(s), 0 Refill(s), [id number] Start Date: 12/28/20 Stop Date: 01/11/21 Status: Ordered LaMICtal 25 mg oral tablet 25 mg = 1 tab(s), Oral, Daily, # 30 tab(s), 0 Refill(s), [id number] Start Date: 12/28/20 Stop Date: 01/27/21 Status: Ordered levothyroxine 112 mcg (0.112 mg) oral tablet 224 mcg = 2 tab(s), Oral, Daily, # 60 tab(s), 0 Refill(s), [id number] Start Date: 12/28/20 Stop Date: 01/27/21 Status: Ordered prazosin 1 mg oral capsule 1 mg = 1 cap(s), Oral, qHS, # 30 cap(s), 0 Refill(s), [facility][id number] Start Date: 12/28/20 Stop Date: 01/27/21 Status: Ordered Mental Status 12/29/20 Level of Consciousness Alert Orientation Assessment Oriented x 4 Problem List Condition Effective Dates Status Health Status Inform ant Bulimia(Confirmed) Active Hypothyroidism(Confirmed) Active Mood disorder(Confirmed) Active Results Laboratory List Name Date Coronavirus SARS-COV-2 12/26/20 Coronavirus SARS-COV-2 12/24/20 Coronavirus SARS-COV-2 12/23/20 Most recent to oldest [Reference Range]: 1 2 3 Coronavirus SARS-CoV-2 [Not Detected] Not Detected 1 *NA* (12/26/20 9:01 AM) Not Detected 2 *NA* (12/24/20 11:26 AM) Not Detected 3 *NA* (12/23/20 11:15 AM) 1Result Comment: Coronavirus SARS CoV-2 PCR test performed on [employer]. SARS CoV-2 Not Detected indicates that RNA was not present in the sample provided above the limit of detection. However, it does not rule out COVID-19 and should not be used as the sole basis for treatment or patientmanagement decisions. The results of this test should be interpreted in combination with clinical observations, patient history, and epidemiological information. 2Result Comment: Coronavirus SARS CoV-2 PCR test performed on [employer] [facility]. SARS CoV-2 Not Detected indicates that RNA was not present in the sample provided above the limit of detection. However, it does not rule out COVID-19 and should not be used as the sole basis for treatment or patientmanagement decisions. The results of this test should be interpreted in combination with clinical observations, patient history, and epidemiological information. 3Result Comment: Coronavirus SARS CoV-2 PCR test performed on [employer] [facility]. SARS CoV-2 Not Detected indicates that RNA was not present in the sample provided above the limit of detection. However, it does not rule out COVID-19 and should not be used as the sole basis for treatment or patientmanagement decisions. The results of this test should be interpreted in combination with clinical observations, patient history, and epidemiological information. Vital Signs Most recent to oldest [Reference Range]: 1 2 3 Temperature Tympanic [36.6-38.1 DegC] 36.1 DegC *LOW* (12/20/20 7:14 AM) 36.4 DegC *LOW* (12/19/20 4:36 PM) Temperature Temporal Artery [36.3-37.8 DegC] 36.6 DegC (12/28/20 9:56 AM) 36.4 DegC (12/27/20 8:35 AM) 36.4 DegC (12/26/20 7:05 AM) Peripheral Pulse Rate [60-100 bpm] 93 bpm (12/28/20 9:56 AM) 80 bpm (12/27/20 8:35 AM) 75 bpm (12/26/20 7:05 AM) Respiratory Rate [14-20 br/min] 16 br/min (12/21/20 8:09 AM) 16 br/min (12/19/20 4:36 PM) Blood Pressure [90-140/60-90 mmHg] 131/72mmHg (12/28/20 9:56 AM) 121/77mmHg (12/27/20 8:35 AM) 146/54mmHg *HI* (12/26/20 7:05 AM) Social History Social History Type Response Sex Female Hospital Discharge Instructions Patient Education 12/21/2020 14:30:47 Post-Traumatic Stress Disorder, Adult Post-Traumatic Stress Disorder, Adult Post-traumatic stress disorder (PTSD) is a mental health disorder that can occur after a traumatic event, such as a threat to life, serious injury, or sexual violence. Sometimes, PTSD can occur in people who hear about trauma that occurs to a close family member or friend. PTSD can happen to anyoneat any age. What are the causes? The condition may be caused by experiencing a traumatic event. What increases the risk? This condition is more likely to occur in: ??? servicemen and servicewomen. ??? People who are in circumstances where their lives are threatened. ??? People who have been the victim of, or witness to, a traumatic event, such as: ??? Domestic violence. ??? Physical or sexual abuse. ??? Rape. ??? A terrorist act or gun violence. ??? Natural disasters. ??? Accidents involving serious injury. What are the signs or symptoms? PTSD symptoms may start soon after a frightening event or months or years later. Symptoms last at least one month and tend to disrupt relationships, work, and daily activities. Symptoms of PTSD can be grouped into several categories. Intrusive symptoms This is when you re-experience the physical and emotional sensations of the traumatic event throughone or more of the following ways: ??? Having upsetting dreams. ??? Feeling fear, horror, intense sadness, or anger in response to a reminder of the trauma. ??? Having unwanted upsetting memories while awake. ??? Having physical reactions triggered by reminders of the trauma, such as increased heart rate, shortness of breath, sweating, and shaking. ??? Having flashbacks, or feeling like you are going through the event again. Avoidance symptoms This is when you avoid anything that reminds you of the trauma. Symptoms may also include: ??? Losing interest or not participating in daily activities. ??? Feeling disconnected from or avoiding other people. ??? Isolating yourself. Increased arousal symptoms You may have physical or emotional reactions triggered by your environment. Symptoms may include: ??? Being easily startled. ??? Behaving in a careless or self-destructive way. ??? Becoming easily irritated. ??? Feeling worried and nervous. ??? Having trouble concentrating. ??? Yelling at or hitting other people or objects. ??? Having trouble sleeping. Negative mood and thoughts ??? Believing that you or others are bad. ??? Feeling fear, horror, anger, sadness, guilt, or shame regularly. ??? Not being able to remember certain parts of the traumatic event. ??? Blaming yourself or others for the trauma. ??? Being unable to experience positive emotions, such as happiness or love. How is this diagnosed? PTSD is diagnosed through an assessment by a mental health professional. You will be asked questions about your symptoms. How is this treated? Treatment for this condition may include any of the following or a combination: ??? Taking medicines to reduce PTSD symptoms. ??? Having counseling with a mental health professional or therapist who is experienced in treatingPTSD. ??? Doing eye movement desensitization and reprocessing therapy (EMDR). This type of therapy occurswith a specialized therapist. If you have other mental health concerns, these conditions will also be treated. Follow these instructions at home: Lifestyle ??? Find a support group in your community. Groups are often available for veterans, trauma victims, and family members or caregivers. ??? Try to get 7???9 hours of sleep each night. To help with sleep: ??? Keep your bedroom cool and dark. ??? Do not eat a heavy meal within 1 hour of bedtime. ??? Do not drink alcohol or caffeinated drinks before bed. ??? Avoid screen time, such as television, computers, tablets, or mobile phones, before bed. ??? Do not use illegal drugs. ??? Contact a local organization to find out if you are eligible for a service dog. Activity ??? Exercise regularly. Try to do at least 30 minutes of physical activity most days of the week. ??? Practice self-calming through: ??? Breathing exercises. ??? Meditation. ??? Yoga. ??? Listening to quiet music. ??? Do not isolate yourself. Make connections with other people. ??? Consider volunteering. Volunteering can help you feel more connected. Eating and drinking ??? Do not drink alcohol if: ??? Your health care provider tells you not to drink. ??? You are , may be , or are planning to become . ??? If you drink alcohol: ??? Limit how much you use to: ??? 0???1 drink a day for women. ??? 0???2 drinks a day for men. ??? Be aware of how much alcohol is in your drink. In the [place] one drink equals one 12 oz bottle of beer (355 mL), one 5 oz glass of wine (148 mL), or one 1?? oz glass of hard liquor (44 mL). General instructions ??? Take steps to help yourself feel safer at home, such as by installing a security system. ??? Work with a health care provider or therapist to help manage your symptoms. ??? Take [id number] and prescription medicines as told by your health care provider. ??? Let others know that you have PTSD and the things that may trigger symptoms. This can protect you and help them understand you better. ??? If your PTSD is affecting your marriage or family, seek help from a family therapist. ??? Make sure to let all of your health care providers know you have PTSD. This is especially important if you are having surgery or need to be admitted to the hospital. ??? Keep all follow-up visits as told by your health care provider. This is important. Contact a health care provider if: ??? Your symptoms do not get better. ??? You are feeling overwhelmed by your symptoms. Get help right away if: ??? You have thoughts of hurting yourself or others. If you ever feel like you may hurt yourself or others, or have thoughts about taking your own life,get help right away. You can go to your nearest emergency department or call: ??? Your local emergency services (911 in the [place] ??? A suicide crisis helpline, such as the National Suicide Prevention Lifeline at . This is open 24 hours a day. Summary ??? Post-traumatic stress disorder (PTSD) is a mental health disorder that can occur after a traumatic event. ??? Treatment for PTSD may include medicines, counseling, eye movement desensitization and reprocessing therapy (EMDR), or a combination of therapies. ??? Find a support group in your community. ??? Get help right away if you have thoughts of hurting yourself or others. This information is not intended to replace advice given to you by your health care provider. Make sure you discuss any questions you have with your health care provider. Document Revised: 06/18/2019 Document Reviewed: 06/18/2019 [employer] Patient Education ?? 2020 [employer]
[2023-06-01 01:38] VITALS: BP 146/81; PULSE 104; RESP 18; TEMP 37.1; O2SAT 97
--- NOTE | 2023-06-01 01:54 | W.ED.GENAD ---
HPI General Date/Time Provider Initiated Documentation: 06/01/23 01:43. HPI Narrative: This is a pleasant 22-year-old female with a past medical history of suicidal ideations, depression, congenital hypothyroidism on levothyroxine, currently utilizing Nexplanon, who presents today for hematuria and left groin pain. Patient states that about 3 hours ago while sleeping she developed urinary frequency, noticed blood and clots in her urine. She is uncertain if she is also having some questionable vaginal bleeding. She also developed mild left groin pain. This radiates to her left flank. She denies history of kidney stones or symptoms like this in the past. She denies any other complaints. No other modifying factors. She denies fever or chills. No nausea or vomiting. No chest pain or shortness of breath. She denies current sexual activity. She denies any intercourse for greater than 3 months. Related Data Home Medications Medication Instructions Recorded Confirmed hydroxyzine pamoate 25 mg capsule 25 mg PO TID PRN panic attack(s) 08/30/20 04/05/23 (Vistaril) #14 caps venlafaxine 150 mg 150 mg PO DAILY #90 caps 04/30/23 capsule,extended release 24 hr lamotrigine 200 mg tablet 200 mg PO DAILY #90 tabs 05/06/23 05/06/23 venlafaxine 37.5 mg 37.5 mg PO DAILY #90 caps 05/06/23 05/06/23 capsule,extended release 24 hr levothyroxine 112 mcg tablet 224 mcg (2 x 112 mcg) PO DAILY 05/28/23 #180 tabs cephalexin 500 mg capsule 500 mg PO QID 5 days #20 caps 06/01/23 Previous Rx's Medication Instructions Recorded hydroxyzine pamoate 25 mg capsule 25 mg PO TID PRN panic attack(s) 08/30/20 (Vistaril) #14 caps venlafaxine 150 mg 150 mg PO DAILY #90 caps 04/30/23 capsule,extended release 24 hr lamotrigine 200 mg tablet 200 mg PO DAILY #90 tabs 05/06/23 venlafaxine 37.5 mg 37.5 mg PO DAILY #90 caps 05/06/23 capsule,extended release 24 hr levothyroxine 112 mcg tablet 224 mcg (2 x 112 mcg) PO DAILY 05/28/23 #180 tabs cephalexin 500 mg capsule 500 mg PO QID 5 days #20 caps 06/01/23 Allergies Allergy/AdvReac Type Severity Reaction Status Date / Time macadamia nut oil Allergy Severe Other (See Verified 04/05/23 09:59 Comment) No Known Drug Allergies Allergy Verified 04/05/23 09:59 DAIRY Allergy Mild Diarrhea Uncoded 04/05/23 09:59 General Stated Complaint: Urinary COLEMAN: 3 Review of Systems All systems reviewed & are unremarkable except as noted in HPI and below Exam Narrative Exam Narrative: 1.Const: Well-nourished, Well-developed, appearing stated age 2.Eyes: PERRL, no conjunctival injection, and symmetrical lids. 3.ENT: Atraumatic external nose and ears. Moist MM. Neck: Symmetric, trachea midline, No thyromegaly. 4.CVS: +S1/S2, No murmurs or gallops. Peripheral pulses 2+ and equal in all extremities. Brisk capillary refill in all extremities. 5.RESP: Unlabored respiratory effort. Clear to auscultation bilaterally. No wheezes rales or rhonchi 6.GI: Soft, nondistended. No guarding or rebound. Mild tenderness throughout, particularly in the left lower abdominal quadrant. Vaginal exam was performed with female staff at bedside. No significant vaginal bleeding was noted. No active vaginal bleeding present. 7.MSK: Normocephalic/Atraumatic, Extremities w/o deformity or ttp No cyanosis or clubbing, Normal movement of all extremities 8.Skin: Warm, Dry. No rashes or lesions. 9.Neuro: painter structural steel II-XII grossly intact. Sensation grossly intact, no focal neurologic deficits. 10.Psych: (AAO) x3. Appropriate mood and affect Course Vital Signs Vital signs: Vital Signs Temperature 37.1 C 06/01/23 01:38 Pulse 104 H 06/01/23 01:38 Respiratory Rate 18 06/01/23 01:38 Blood Pressure 146/81 H 06/01/23 01:38 Pulse Oximetry 97 06/01/23 01:38 Temperature 37.1 C 06/01/23 01:38 Pulse 104 H 06/01/23 01:38 Respiratory Rate 18 06/01/23 01:38 Respiratory Effort Normal 06/01/23 01:43 Blood Pressure 146/81 H 02/10/24 01:38 Pulse Oximetry 97 02/10/24 01:38 Pain Level 4 06/01/23 01:43 Lab/Test Results Lab/Test Results: POC- Test(urine) Negative Medical Decision Making This is a pleasant 22-year-old female with a past medical history of suicidal ideations, depression, congenital hypothyroidism on levothyroxine, currently utilizing Nexplanon, who presents today for hematuria and left groin pain. Patient states that about 3 hours ago while sleeping she developed urinary frequency, noticed blood and clots in her urine. She is uncertain if she is also having some questionable vaginal bleeding. She also developed mild left groin pain. This radiates to her left flank. She denies history of kidney stones or symptoms like this in the past. She denies any other complaints. No other modifying factors. She denies fever or chills. No nausea or vomiting. No chest pain or shortness of breath. She denies current sexual activity. She denies any intercourse for greater than 3 months. Physical exam demonstrates well-appearing female, mild left lower quadrant abdominal tenderness. No guarding or rebound. Concern for kidney stone, diverticulitis, or cystitis. Will evaluate for these, treat the patient's pain, get a CT scan, monitor closely and reassess. 3:[address] scan shows no evidence of kidney stone. Urinalysis shows notable infection, with some RBCs as well, likely secondary to the cystitis from infection. Mild white count. Renal function normal. CT scan demonstrates mild mesenteric lymph nodes, and some fluid-filled loops of bowel without any evidence of obstruction. Patient on reassessment feels well. She is hungry, is asking to eat and go home. Will give 2 g of ceftriaxone here and prescription for Keflex for home use. Patient feels well with no evidence of an acute surgical abdomen. Discussed red flags which to return. I have extensively reviewed the treatment plan and discharge instructions with the patient. I have addressed all patient concerns at this time. The patient was made aware of what symptoms to monitor for that would warrant a return to the emergency department. Discussed the plan with the patient, they demonstrate verbal understanding and agreement with our assessment and plan at this time. The documentation in this chart was dictated using [employer]ious dictation software. Please excuse any dictation errors. FINDINGS: Lungs: The lungs are normal. There is no evidence of focal pulmonary consolidation. Pleural spaces: There is no evidence of pneumothorax. There are no pleural effusions present. Heart: The cardiac structures are normal. Liver: There are no focal liver lesions present. There is no evidence of intrahepatic or extrahepatic biliary ductal dilation. Gallbladder and bile ducts: The gallbladder is normal. There is no cholelitiasis, wall thickening or pericholecystic fluid to suggest cholecystitis. Pancreas: The pancreas is normal. Spleen: The spleen is normal. Adrenal glands: Calcification present within the right adrenal gland. The adrenal glands are otherwise normal. Kidneys and ureters: The kidneys are normal. Stomach and bowel: There is moderate increased colonic fecal content. The colon is mildly distended. These findings suggest a moderate degree of constipation. Clinical correlation recommended. There are fluid-filled loops of small bowel with air-fluid levels. No significant bowel wall thickening or inflammatory changes. No evidence of obstruction. Consider early enteritis. There is no evidence of intestinal obstruction. No diverticulitis is present. Appendix: A normal appendix is identified. There is no evidence of distention or periappendiceal inflammation to suggest appendicitis. Intraperitoneal space: There is no free intraperitoneal air. There is no evidence of free intraperitoneal or pelvic fluid. There are no soft tissue masses or fluid collections. Vasculature: The aorta is normal without evidence of significant atherosclerosis or aneurysmal disease. The peripheral arterial vascular system visualized is unremarkable. The portal venous system visualized is unremarkable. The venous system visualized is unremarkable. Lymph nodes: There are enlarged nonspecific lymph nodes in the mesenteric fat predominantly within the ileocolic chain. This nonspecific mesenteric adenitis can be secondary to a variety of bacterial, viral, or other inflammatory processes. Urinary bladder: There is nonspecific bladder wall thickening. This may be related to incomplete bladder filling. Reproductive: The uterus is normal. The ovaries are normal. Bones/joints: The skeletal structures show no evidence of fracture or other acute processes. Soft tissues: The extra-abdominal soft tissues are normal. IMPRESSION: 1. There are enlarged nonspecific lymph nodes in the mesenteric fat predominantly within the ileocolic chain. This nonspecific mesenteric adenitis can be secondary to a variety of bacterial, viral, or other inflammatory processes. 2. There are fluid-filled loops of small bowel with air-fluid levels. No significant bowel wall thickening or inflammatory changes. No evidence of obstruction. Consider early enteritis. Thank you for allowing us to participate in the care of your patient. Dictated and Authenticated by: Neptali Krishnamurthy MD 06/01/2023 2:59 AM Eastern Time ([place] & [place]) Quality:SDOH Health Related Social Needs: No Data to Display PFSH All Active Problems (Updated 06/01/23 @ 03:04 by Bean Samuels DO) Hematuria (Acute) UTI (urinary tract infection) (Acute) Tobacco use (Acute) Bulimia (Chronic) Suicidal ideation (Acute) Major depression (Chronic) Suicidal ideations (Acute) Depression (Chronic) Panic attack (Acute) Craving for particular food (Chronic) sugar Acne (Acute) BMI (body mass index), pediatric, greater than 99% for age (Acute) Anxiety (Chronic 08/20/16) Congenital hypothyroidism (Acute 12/26/12) Hearing loss (Acute 12/26/12) Medical History (Updated 06/01/23 @ 03:04 by Bean Samuels DO) Hearing aid worn amplifier at school Learning difficulty HAS IEP Congenital hypothyroidism Chronic serous otitis media PE TUBES -2001 Respiratory syncytial virus bronchiolitis HOSP 504 plan Surgical History Myringotomy w/ PE (pressure equalizing) tubes Family History Mother Dental decay loss of several teeth Alcohol use disorder Hypothyroid Sister BMI,pediatric >= 95% Anxiety Depression Hypothyroid Brother Substance abuse THC Anxiety Depression Paternal Grandfather Diabetes Paternal Grandmother Diabetes Father Alcohol use disorder Pre-diabetes Social History Smoking/Tobacco Use Status: Current every day Tobacco Type: cigarettes and e-cigarettes Tobacco: How many years used: 2 Smokeless tobacco user: dissolvable tobacco Quit status: not considering quitting Second Hand Exposure: No Smoking risk assessment performed?: Yes Alcohol Intake: current Alcohol Intake frequency: a few times a month Alcohol type: beer Drug use: Rarely Substance use type: marijuana and other Adopted: No Caregiver/Support person: No Foster care: No Household members: family Housing: house Number of Children: 0 number of grandchildren: 0 Communication Needs: Hard of Hearing Education Level: vocational Do you need help understanding health information?: Rarely current occupation: [employer] Pets and animals: No Sexually active: No Do you think of yourself as: lesbian/arce/homosexual Current gender identity: female What is your relationship status?: never How often do you talk on the phone with friends or family?: three or more times per week How often do you get together with friends or relatives?: three or more times per week How often do you attend jewish or hinduism services?: decline to answer Do you belong to any clubs or organized social groups?: no Panel score (0-1 are the most socially isolated patients): 1 What type of physical activity do you participate in: regular exercise Duration: < 15 minutes/day Frequency: 1-2 times per week Lona/Buddhist: Other Seatbelt use: always Helmet use: Yes Helmet use: always Drive intox or ride w/intox escort car driver: No Do you feel safe at home: Yes Do you feel safe in your relationship?: Yes PAWSS Have you Been Recently Intoxicated or Drunk Within the Last 30 days?: No Have you Ever Experienced Previous Episodes of Alcohol Withdrawal?: No Have you ever Experienced Withdrawal Seizures?: No Have you ever Experienced Delirium Tremens(DT)s?: No Have you ever undergone Alcohol Rehabilitation Treatment (i.e, inpt ot outpatient treatment programs)?: No Have you ever Experienced Blackouts?: No Have you ever Combined Alcohol with other Downers within the last 90 days?: No Have you ever Combined Alcohol with any other Substance of Abuse during the last 90 days?: No Positive Blood Alcohol level on Presentation? [PCS.BAL]: Unable to Obtain Evidence of Increased Autonomic Activity (i.e. HR>120, tremor, sweating, agitation, nausea)?: No Result: 0 Discharge Plan Disposition Patient Disposition: Home Condition: Good Discharge Details Clinical Impression: UTI (urinary tract infection), Hematuria Primary Care Provider: Mitchell Avalos ED Provider: Bean Samuels Home Meds and New Rx's Prescriptions: New cephalexin 500 mg capsule 500 mg PO QID 5 Days Qty: 20 0RF No Action hydroxyzine pamoate [Vistaril] 25 mg capsule 25 mg PO TID PRN (Reason: panic attack(s)) Qty: 14 0RF Rx Instructions: take one or 2 capsules every 6 hours as needed for severe anxiety/panic lamotrigine 200 mg tablet 200 mg PO DAILY Qty: 90 3RF venlafaxine 37.5 mg capsule,extended release 24hr 37.5 mg PO DAILY Qty: 90 3RF venlafaxine 150 mg capsule,extended release 24hr 150 mg PO DAILY Qty: 90 3RF levothyroxine 112 mcg tablet 224 mcg PO DAILY Qty: 180 3RF Discharge Instructions Instructions: Urinary Tract Infection in Women (ED), Hematuria (ED) Additional Instructions: At this time your laboratory workup demonstrates good kidney function, normal liver function, but there is evidence of a urinary tract infection. This is likely the primary cause of the bleeding that was noticed in your urine. Please take the antibiotic as directed. If the bleeding persists even after the complete treatment course, then you may need close follow-up with your primary care provider for reassessment. If you notice any worsening of your symptoms, or any new symptoms such as vomiting, diarrhea, fever, chills, shortness of breath, chest pain, numbness, weakness, or fainting , please return immediately to the emergency department for reevaluation. Please follow up with your primary care provider as soon as possible for reassessment and reevaluation. As always, it was a pleasure participating in your medical care today. Referrals: Mitchell Avalos DO [Primary Care Provider] -
[2023-06-01 01:56] LABS: Bilirubin Negative (Negative); Blood Large (Negative); Clarity Sl Cloudy (Clear); Glucose Negative (Negative); Ketones Negative (Negative); Leukocyte Esterase Small (Negative); Nitrite Negative (Negative); Specific Gravity 1.015 (1.005-1.025); Urobilinogen 0.2 mg/dL (Up to 0.2)
[2023-06-01 01:57] LABS: HCT 41.8 % (36.0-46.0); HGB 13.1 g/dL (11.2-15.7); MCH 24.2 pg (27.0-33.0); MCHC 31.3 % (32.0-36.0); MCV 77 fL (80-95); MPV 8.9 fL (8.0-11.0); Monocytes % 5.3; Neutrophils % 80.3; Platelet Count 355 10^3/uL (130-400); RBC 5.41 10^6/uL (3.93-5.22); RDW-SD 44.6 fL; WBC 13.33 10^3/uL (4.4-10.8)
[2023-06-01 01:58] LABS: Abs Immature Grans 0.02 10^3/uL (0.0-0.06); Absolute Basophil Count 0.03 10^3/uL (0.0-0.2); Absolute Lymphocyte Count 1.87 10^3/uL (1.2-3.4); Absolute Monocyte Count 0.71 10^3/uL (0.1-0.8); Basophils % 0.2; Immature Grans % 0.2
[2023-06-01] MEDS: Lactated Ringers 1,000 ML 1000 ML IV (01:59)
[2023-06-01] MEDS: Ketorolac 15 MG/ML VIAL IVP (01:59)
[2023-06-01 02:01] LABS: Bacteria Moderate HPF (Negative); Casts Negative LPF (Negative); Crystals Negative HPF (Negative); Epithelial Cells Few HPF (Negative); Mucus Negative (Negative); Other Cells Rare Renal (Negative); WBC >50 HPF (0-5)
[2023-06-01 02:02] LABS: C & S Indicated? Yes
[2023-06-01 02:14] LABS: ALT 19 U/L (14-59); AST 16 U/L (15-37); Albumin 3.8 g/dL (3.4-5.0); Alkaline Phosphatase 89 U/L (46-116); Anion Gap 10.5 mmol/L (3-11); BUN 7 mg/dL (7-18); Bilirubin, Total 0.3 mg/dL (0.2-1.0); CO2 26.5 mmol/L (21.0-32.0); CREATININE 0.9 mg/dL (0.55-1.02); Calcium 8.8 mg/dL (8.5-10.1); Chloride 102 mmol/L (98-107); Glucose 95 mg/dL (74-106); Potassium 3.7 mmol/L (3.5-5.1); Sodium 139 mmol/L (136-145); Total Protein 7.6 g/dL (6.4-8.2)
[2023-06-01] MEDS: cefTRIAXone 2 GM/50 ML BAG IVPB (02:57)
--- NOTE | 2023-06-01 02:59 | DI.VRAD_ITS ---
PROCEDURE INFORMATION: Exam: CT Abdomen And Pelvis Without Contrast Exam date and time: 06/01/2023 2:16 AM Age: 22 years old Clinical indication: Other: Hematuria; Abdominal pain; Flank; Left; Additional info: Left flank pain and hematuria TECHNIQUE: Imaging protocol: Computed tomography of the abdomen and pelvis without contrast. COMPARISON: CR XR CHEST 2V PA LATERAL 10/25/2019 10:52 AM FINDINGS: Lungs: The lungs are normal. There is no evidence of focal pulmonary consolidation. Pleural spaces: There is no evidence of pneumothorax. There are no pleural effusions present. Heart: The cardiac structures are normal. Liver: There are no focal liver lesions present. There is no evidence of intrahepatic or extrahepatic biliary ductal dilation. Gallbladder and bile ducts: The gallbladder is normal. There is no cholelitiasis, wall thickening or pericholecystic fluid to suggest cholecystitis. Pancreas: The pancreas is normal. Spleen: The spleen is normal. Adrenal glands: Calcification present within the right adrenal gland. The adrenal glands are otherwise normal. Kidneys and ureters: The kidneys are normal. Stomach and bowel: There is moderate increased colonic fecal content. The colon is mildly distended. These findings suggest a moderate degree of constipation. Clinical correlation recommended. There are fluid-filled loops of small bowel with air-fluid levels. No significant bowel wall thickening or inflammatory changes. No evidence of obstruction. Consider early enteritis. There is no evidence of intestinal obstruction. No diverticulitis is present. Appendix: A normal appendix is identified. There is no evidence of distention or periappendiceal inflammation to suggest appendicitis. Intraperitoneal space: There is no free intraperitoneal air. There is no evidence of free intraperitoneal or pelvic fluid. There are no soft tissue masses or fluid collections. Vasculature: The aorta is normal without evidence of significant atherosclerosis or aneurysmal disease. The peripheral arterial vascular system visualized is unremarkable. The portal venous system visualized is unremarkable. The venous system visualized is unremarkable. Lymph nodes: There are enlarged nonspecific lymph nodes in the mesenteric fat predominantly within the ileocolic chain. This nonspecific mesenteric adenitis can be secondary to a variety of bacterial, viral, or other inflammatory processes. Urinary bladder: There is nonspecific bladder wall thickening. This may be related to incomplete bladder filling. Reproductive: The uterus is normal. The ovaries are normal. Bones/joints: The skeletal structures show no evidence of fracture or other acute processes. Soft tissues: The extra-abdominal soft tissues are normal. IMPRESSION: 1. There are enlarged nonspecific lymph nodes in the mesenteric fat predominantly within the ileocolic chain. This nonspecific mesenteric adenitis can be secondary to a variety of bacterial, viral, or other inflammatory processes. 2. There are fluid-filled loops of small bowel with air-fluid levels. No significant bowel wall thickening or inflammatory changes. No evidence of obstruction. Consider early enteritis. Dictated and Authenticated by: Neptali Krishnamurthy MD. Ordering:BABAK Del Angel MD
[2023-06-01 03:00] VITALS: BP 121/68; PULSE 79; RESP 18; O2SAT 100
[2023-06-01 03:33] VITALS: BP 135/75; PULSE 82; RESP 18; O2SAT 100
== END 2023-06-01 03:34 | disposition home or self-care (01) ==
PROVIDERS: Emergency Provider Student in an Organized Health Care Education/Training Program; PCP Family Medicine
DX: N39.0 Urinary tract infection, site not specified (principal); R31.9 Hematuria, unspecified; F17.210 Nicotine dependence, cigarettes, uncomplicated; F17.290 Nicotine dependence, other tobacco product, uncomplicated
CPT/HCPCS: 80053; 81025; 96361; 96365; 96375; 99284; 74176; 81003; 81015; 85025; 87086; J0696; J1885